=== PATIENT | female | born 1945 | race Caucasian/White ===

== ENCOUNTER 2022-07-01 10:34 | Outpatient (CLI) | payer MEDICARE, OTHER, SELFPAY ==
[2022-07-01 14:04] LABS: Chloride* 103 mmol/L (96-114); Sodium* 140 mmol/L (135-149)
[2022-07-01 14:05] LABS: Potassium* 4.3 mmol/L (3.6-5.1)
[2022-07-01 14:06] LABS: Cholesterol* 149 mg/dL (90-199)
[2022-07-01 14:07] LABS: Alkaline Phosphatase* 71 U/L (40-150); Aspartate Amino Transferase* 24 U/L (12-35); Blood Urea Nitrogen* 19 mg/dL (7-30); Carbon Dioxide* 29 mmol/L (20-32); Estimated Glomerular Filt Rate 57 ml/min; Glucose* 92 mg/dL (60-115); Total Protein* 7.3 g/dL (6.0-8.3)
[2022-07-01 14:08] LABS: Alanine Aminotransferase* 10 U/L (4-35); Calcium* 9.2 mg/dL (8.4-10.6); HDL Cholesterol* 52 mg/dL (>=50); LDL Cholesterol Calculated 75 mg/dL (<100); Triglycerides* 109 mg/dL (40-149)
[2022-07-01 14:21] LABS: Albumin* 4.1 g/dL (3.3-5.0)
[2022-07-01 14:57] LABS: Vitamin B12* 652 pg/mL (243-894)
== END 2022-07-01 10:35 | disposition home or self-care (01) ==
PROVIDERS: PCP Family Medicine; Visit Provider Family Medicine
DX: I10 Essential (primary) hypertension (principal); K21.9 Gastro-esophageal reflux disease without esophagitis; R53.83 Other fatigue; E03.9 Hypothyroidism, unspecified; E78.6 Lipoprotein deficiency
CPT/HCPCS: 80053; 80061; 82607; 84443

== ENCOUNTER 2022-07-23 14:50 | Outpatient (CLI) | payer MEDICARE, OTHER, SELFPAY ==
--- NOTE | 2022-07-23 15:00 | CRLHL7_ITS ---
For Patients: As a result of the Century Cures Act, medical imaging exams and procedure reports are released immediately into your electronic medical record. You may view this report before your referring provider. If you have questions, please contact your health care provider. DXA BONE MINERAL DENSITY STUDY Current height (in): 60.0. Weight (lb): 140.0. Menopause age: 48. Ethnicity: White. 1. Have you had a previous hip or vertebral fracture? Yes. 2. Have you had any fractures during your adult life which did not result from significant trauma (e.g., auto accident)? Yes. 3. Did either of your parents have a hip fracture? Yes. 4. Do you smoke? No. 5. Have you ever taken Glucocorticoids? No. 6. Do you have rheumatoid arthritis? No. 7. Do you have secondary osteoporosis? Yes. 8. Do you drink 3 or more alcoholic drinks per day? No. 9. Are you being treated for osteoporosis? No. 10. Have you ever taken any of the following medications: Actonel, Evista, Fosamax, Miacalcin, Reclast, Boniva, Forteo, HRT (i.e. estrogen/hormone therapy), Protelos, Prolia, Vitamin D, Calcium, other ??? please specify. ANSWER: Yes, vitamin D, calcium. 11. Do you have any of the following medical conditions: Anorexia or bulimia, asthma or emphysema, end stage renal disease, hyperparathyroidism, any seizure disorders, cancer, inflammatory bowel diseases, hysterectomy, other ??? please specify. ANSWER: Yes, cancer. 12. What was your maximum height (inches)? 60. 13. Do you perform weight bearing exercise regularly? Yes. 14. Do you regularly consume dairy products? No. 15. Do you drink caffeinated beverages? No. If female: 16. At what age did your period start? 12. 17. Are you premenopausal? No. 18. How many full term pregnancies have you had? 2. 19. Have you ever missed your period for more than 6 months in a row (not including or menopause)? No. TECHNIQUE: Bone mineral density study was performed using the [employer]. FINDINGS: The results of the study expressed as bone mineral density (BMD) are as follows: Lumbar spine L2 to L4: BMD: 0.836 g/cm2. T-score: -2.2. Z-score: 0.5. Neck Left: BMD: 0.574 g/cm2. T-score: -2.5. Z-score: -0.2. Right: BMD: 0.610 g/cm2. T-score: -2.1. Z-score: 0.1. Total Left: BMD: 0.796 g/cm2. T-score: -1.2. Z-score: 0.8. Right: BMD: 0.877 g/cm2. T-score: -0.5. Z-score: 1.5. IMPRESSION: Osteoporosis. Johan Muñiz M.D. Diagnostic Radiologist [email or web address] Transcribed: 11L35 am DW/Dictated by: Johan Muñiz MD @ 07/24/2022 9:12:00 AM (Electronically Signed)
--- NOTE | 2022-08-19 14:22 | URNOTE ---
Received request for prior authorization for Reclast ([id number]). Pt has medicare primary. Prior authorization is not required as services are based on medical necessity and follow medicare guidelines
== END 2022-07-23 14:51 | disposition home or self-care (01) ==
LOC: RAD 14:51
PROVIDERS: PCP Family Medicine; Visit Provider Family Medicine
DX: M81.0 Age-related osteoporosis without current pathological fracture (principal)
CPT/HCPCS: 77080

== ENCOUNTER 2022-08-15 13:59 | Outpatient (CLI) | payer MEDICARE, OTHER, SELFPAY ==
[2022-08-18 13:53] LABS: Magnesium* 1.9 mg/dL (1.5-2.6); Phosphorus* 3.7 mg/dL (2.5-4.5)
== END 2022-08-15 14:00 | disposition home or self-care (01) ==
PROVIDERS: PCP Family Medicine; Visit Provider Family Medicine
DX: M81.0 Age-related osteoporosis without current pathological fracture (principal); I10 Essential (primary) hypertension
CPT/HCPCS: 83735; 84100

== ENCOUNTER 2022-08-21 09:15 | Outpatient (RCR) | payer MEDICARE, OTHER, SELFPAY ==
--- NOTE | 2022-07-22 16:50 | PT.OPE ---
PT [place] [facility] Start: 07/22/22 10:12 Freq: Status: Active Protocol: Document 07/22/22 10:13 BMS (Rec: 07/22/22 10:14 BMS [id number]) E-signed By Joan Aponte PT Physical Therapy Outpatient Evaluation Insurance Information Recert Due Date 10/19/22 Insurance Name Medicare B Insurance Information/Comments also mutual of [employer] Medical Diagnosis dorsalgia M54.9 Treating Diagnosis low back pain M54.50 abnormal gait R26.89 Referring MD Fran STAUFFER Subjective Subjective pain has been going on for a couple of years, since fell and fx pelvis. went to PT here for a little while then also in [place] where they tried to straighten out my pelvis and gave me some exercises that I do almost every day bc they make me feel better. (bridge, LTR, piriformis/glute stretch, SKTC) but I dont' know if it is getting any better. always kind of there but notice it most with FUNCTIONAL ACTIVITIES: sit to stand shelly from car (have to stand a min or so bc severe pain), walking more than a couple of blocks (try to walk to mailbox and back is maybe [address], starts to hurt nursing home there and have to sit when done), standing for shopping (maybe 20 min then have to sit). Son always tells me not to shuffle my feet and that I need to walk more, but I cant' walk more bc it hurts so much. Live in tiny house on son's [place] acres in the summer, go to [place] in winter, leave Aug 23. also my legs go tired fast PAST RX: PT, 2 tylenol relieves it, cream from [place] numbs it. I do not use walking sticks, a walker nor cane Date of Last Physician Visit 07/07/22 Current Work Status Retired Preferred Name Pat Precautions Treatment Precautions/Contraindications hx fx pelvis, on xray found wedge fx L1, skin cancer leaves 08/23 for [place] winter Therapy Limitations/Systems Review Hearing Objective Range of Motion trunk fingertips to mid olmos, ext mod to severe loss compensates with pelvic tilt. Sidebend L=R both severe loss SLR R = 70, L=80 ankle in long sit B to neutral . R knee ext loss 10 degrees - tight through HS and calf Strength MMT seated hip flex B 4+/5, quad adn HS 5/5. DF 4/5, PF R= 5/5, L=4/5 (not tested in standing). EHL R= 5/5, L=4/5 bent knee hip ext in prone on pillow B 3-/5 Palpation tenderness across low back and into glutes, myofascial restrictions noted in mid to low back as well as hamstrings and R>L QL Balance & Gait lack hip extension, is forward bent trunk, shuffles when not mindful, decreased stride length. . arm swing appropriate, L rotation lacking. Posture head forward, hips shifted R, scoliosis, pelvis rotated to R , when not thinking of it patient stands w R rotated pelvis ~ 30-45 degrees. and with R hip ER. L iliac high vs R Sensation/Reflexes slight decrease in pin prick L LE. reports sensation lacking in L foot when walk but not objective Other/Pertinent Objective difficulty with bed mobility - will need instruction and strengthening in rolling and up/down Assessment Assessment/Impression Pt is 77 y.o. female referred to rehab services for ongoing low back pain. She notes pain across low back/sacrum that extends into posterior - gluteals and hamstrings that began after pelvic fx (non- surgical). Prior treatment: 2 tylenol will relieve as does some topical cream from [place] , does daily routine of back stretches from PT in [place], was seen here briefly before she left for [place] maybe 1-2 years ago. Functional limitations: pain with sit/ stand walking, standing > 15-20 min, squatting to pick things up, getting up from floor from dog cares, bed mobility. She shelly would like to improve walking ability for function and fitness. She presents with myofascial restrictions in lower half, R rotated pelvis ~ 30 degrees in standing, L iliac elevated, weakness in glutes and back extensors, tightness in hip rotators and R more than L hamstring. She does also lack balance in challenged situations. She is appropriate for skilled physical therapy to address current condition x 4 weeks until she leaves for [place] for winter. Primary Functional Limitations sit/ stand walking standing squatting getting up from floor bed mobility Plan of Care Rehabilitation Potential Good Physical Therapy Goals STG meet 2-3 weeks 1) Patient will demonstrate I HEP and self care/home management techniques for pain management, core stability and ROM. 2 ) Pt report pain <2-3/10 with activity and provocative positions rolling over in bed, standing up, getting out of car etc. LTG meet 4-8 weeks 1) Pt demo ability to lift 20- 50# for dependent care of dog without increased pain using most appropriate applicable body mechanics 2) Pt report ability to perform all aspects of home chores without increased pain for continued independent living. 3) Pt demo ability to ascend/ descend stairs for access to home environment without increased pain 4) Pt report ability to participate in fitness activities including walking and ex without increased pain for health and wellness goals Coordination/Communication With Referral Source Treatment Plan/Direct Interventions Electrical Stimulation,Gait Training,Manual Therapy, Neuromuscular Re-ed,Self-Care/ Home Management,Therapeutic Activities,Therapeutic Exercises Frequency/Duration 1-2x/ week x 4 weeks until leaves for [place] Patient Will Be Discharged From Therapy Completion of LTG(s),Skills Plateau,Independent w/HEP, Independently Progressing Evaluation Billing Complexity Moderate Certification Information Initial Certification Date 07/22/22 Ending Certification Date 10/19/22 Provider Signature Shows Agreement With POC & Medical Necessity Physician Comment/Change Comment or Changes Physician NPI Number #
--- NOTE | 2022-07-31 14:09 | URNOTE ---
Request received for authorization for Farideh ([id number]). Prior authorization is not required as services are based on medical necessity and follow Medicare guidelines.
== END 2022-08-22 07:32 | disposition home or self-care (01) ==
PROVIDERS: PCP Family Medicine; Referring Provider Family Medicine; Visit Provider Family Medicine
DX: M54.9 Dorsalgia, unspecified (principal); Z51.89 Encounter for other specified aftercare
CPT/HCPCS: 97110; 97116; 97140; 97162

== ENCOUNTER 2022-08-22 12:58 | Outpatient (RCR) | payer MEDICARE, OTHER, SELFPAY ==
[2022-08-22 13:21] VITALS: BP 152/77; PULSE 64; RESP 16; TEMP 36.1
--- NOTE | 2022-08-22 14:51 | ONC.NURNOTE ---
Pt here for Reclast, pt's CrCl calculates to 32.77ml/min. Per standing orders, reclast should be held. Telephone Appointment Clerk called and left message with Dr. Peters (ordering physician) and whether safe to proceed with Reclast. Per Dr. Peters, okay to give Reclast with CrCl of 32.77ml/min. Telephone Appointment Clerk requested order to be faxed.
== END 2023-02-18 23:59 | disposition home or self-care (01) ==
LOC: CCIC 12:58
PROVIDERS: PCP Family Medicine; Referring Provider Family Medicine; Visit Provider Clinical Nurse Specialist
DX: M81.0 Age-related osteoporosis without current pathological fracture (principal)
CPT/HCPCS: 96374; J3489

== ENCOUNTER 2023-04-20 13:58 | Outpatient (CLI) | payer MEDICARE, OTHER, SELFPAY | END 2023-04-20 13:59 | disposition home or self-care (01) | PROVIDERS: PCP Family Medicine; Visit Provider Family Medicine | DX: E03.9 Hypothyroidism, unspecified (principal); R53.83 Other fatigue; R42 Dizziness and giddiness | CPT/HCPCS: 84443 ==

== ENCOUNTER 2023-07-14 09:15 | Outpatient (CLI) | payer MEDICARE, OTHER, SELFPAY | END 2023-07-14 09:16 | disposition home or self-care (01) | LOC: NFLDREF 07-15 05:54 | PROVIDERS: PCP Family Medicine; Referring Provider Family Medicine; Visit Provider Family Medicine | DX: E78.6 Lipoprotein deficiency (principal); I10 Essential (primary) hypertension; M81.0 Age-related osteoporosis without current pathological fracture | CPT/HCPCS: 80053; 80061; 82607; 83735; 84100 ==

== ENCOUNTER 2023-07-21 12:58 | Outpatient (RCR) | payer MEDICARE, OTHER, SELFPAY ==
--- NOTE | 2023-07-14 13:34 | URNOTE ---
Request received for authorization forEvan ([id number]). Prior authorization is not required as services are based on medical necessity and follow Medicare guidelines.
[2023-07-21 13:10] VITALS: BP 138/67; PULSE 75; RESP 16; TEMP 36.2; O2SAT 94
== END 2024-01-17 23:59 | disposition home or self-care (01) ==
LOC: CCIC 12:58
PROVIDERS: PCP Family Medicine; Referring Provider Family Medicine; Visit Provider Clinical Nurse Specialist
DX: M81.0 Age-related osteoporosis without current pathological fracture (principal)
CPT/HCPCS: 96376; J3489

== ENCOUNTER 2024-05-18 06:08 | Day surgery (SDC) | payer MEDICARE, OTHER, SELFPAY ==
[2024-05-18] MEDS: LACTATED RINGERS 1000 ML 1,000 ML 100 ML IV (06:20)
[2024-05-18 06:35] VITALS: BP 165/68; PULSE 72; RESP 16; TEMP 36.7; O2SAT 97; BMI 25.5
[2024-05-18] MEDS: SODIUM CHLORIDE 0.9 % (FLUSH) 10 ML SYRINGE IVF (06:56)
--- NOTE | 2024-05-18 06:57 | SUR.PREOP ---
TIME?OUT:?06 PT/RN/MDA?VERIFICATION?OF?SURGICAL?SITE Rigth Wrist,?PROCEDURE Nerve Block,?AND?CONSENT OBTAINED?PRIOR?TO?INVASIVE?PROCEDURE.
[2024-05-18 07:05] VITALS: BP 165/78; PULSE 63; RESP 16; O2SAT 99
--- NOTE | 2024-05-18 07:07 | W.PM.H&PU ---
History & Physical Update History & Physical Update H&P Reviewed and patient assessed: No changes noted
[2024-05-18] MEDS: MIDAZOLAM HCL 1 MG/ML inj IVP (07:08)
[2024-05-18] MEDS: fentaNYL 100 MCG/2 ML inj IVP (07:08)
[2024-05-18 07:10] VITALS: BP 151/67; PULSE 62; RESP 16; O2SAT 99
[2024-05-18] MEDS: CEFAZOLIN 2 GM in 0.9 % SODIUM CHLORIDE Mini-bag 100 ML IVPB (07:20)
--- NOTE | 2024-05-18 07:47 | P.ORPRC_ITS ---
Procedure Note Date of procedure: 05/18/24 Procedure: PREOPERATIVE DIAGNOSIS: 1. Right dorsal wrist benign mass POSTOPERATIVE DIAGNOSIS: 1. Right dorsal wrist benign cyst PROCEDURE: 1. Right dorsal wrist benign cyst open excision SURGEON: Tommy Leo MD. SOAP DRIER OPERATOR: Tracee WEATHERS - Of note, an administrative assistant was valuable for this case to aid in patient positioning, tissue retraction, limb manipulation/positioning, and closure. ANESTHESIA: Regional block plus MAC IMPLANTS: None TOURNIQUET: [9] minutes at 210 torr COMPLICATIONS: None evident INDICATIONS: The patient is a pleasant 79-year-old female who has experienced right dorsal wrist recurrent benign mass/cyst with pain that has progressively gotten worse. Nonoperative management has been tried but unsuccessful. Given the failure of nonoperative management, and how this affects daily life, surgery was recommended. DESCRIPTION OF PROCEDURE: Following a thorough discussion of risks, benefits, and alternatives consent was obtained and the operative extremity was marked. The patient was brought to the operating room and placed supine on the operating table. No antibiotics were administered as this was planned to be a local case only. Proper time-out was performed identifying proper patient, site, and procedure. The operative extremity was prepped and draped in the appropriate sterile fashion using ChloraPrep. The limb was exsanguinated and the tourniquet inflated. A longitudinal incision made overlying the dorsal aspect of the right wrist centered over the cyst itself. Sharp incision through the very thin skin and blunt dissection then through subcutaneous layer allowed identification of the cystic structure. This seemed to be coming from the extensor tendon synovial layer/fluid. The fluid itself appeared to be a synovial fluid. Once the cyst was punctured, clear, pena colored minimally viscous fluid was expressed. Different than a typical ganglion cyst. The remaining sac to the cyst was mobilized from the deeper synovial lining. It was intimate with the extensor tendons of the fingers. This was sent for permanent pathology. Bipolar cautery was utilized to help mobilize and remove the cyst from deeper capsular structures. Caution was taken along the extensor tendons. Thorough irrigation normal saline was performed. Tourniquet was deflated prior to closure. Hemostasis achieved. Closure performed with [4-O nylon]. Soft dressings and a wrist brace were applied, and the patient was awoken/transferred to the recovery room in stable condition. PLAN: 1. Encourage elevation of the operative extremity. 2. Range of motion of the operative extremity/digits as tolerated. 3. Ibuprofen, acetaminophen and/or oxycodone as needed for pain. 4. Follow up with PA visit in 12-16 days for wound check and suture removal.
[2024-05-18] MEDS: NEOMYCIN/BACITRACIN/POLYMYXIN B 1 APPLIC TOPICAL (07:51)
--- NOTE | 2024-05-18 07:57 | W.PM.NB ---
Nerve Block Nerve Block Time Seen by Provider: 07:11 Date Seen: 05/18/24 Type of block requested by surgeon for post-operative analgesia: axillary Side: right Time out performed: Yes Verification of patient name: Yes Verification of date of : Yes Site marking: site marked Name of person performing procedure: Jere Continuous monitoring Was continuous monitoring of O2 sat, B/P, nuclear monitoring technician, recorded every 15 minutes?: Yes Procedure Checklist: sterile prep, needles and gloves Ultrasound guided. Images saved: Yes Medications given in 5ml increments after negative aspiration: Lidocaine %: 2 mL: 20 Needle gauge: 22 Patient tolerated procedure well: Yes Additional comments: Needle noted adjacent to nerve Block Charges Block Charge (with Pro Fee): Brachial Plexus Use of Ultrasound Machine for Block: Yes- US Guidance/pain block
--- NOTE | 2024-05-18 07:58 | W.ANESCHARGE ---
Anesthesia Charges Start Date/Time Anesthesia Start Date: 05/18/24 Anesthesia Start Time: 07:15 Stop Date/Time Anesthesia Stop Date: 05/18/24 Anesthesia Stop Time: 08:03 Summary Extremes of Age - Over 70 or under 1: MDA
[2024-05-18 08:03] VITALS: BP 120/60; PULSE 80; RESP 20; TEMP 36.2; O2SAT 95
--- NOTE | 2024-05-18 08:06 | W.ANESCHARGE ---
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
[2024-05-18 08:15] VITALS: BP 142/72; PULSE 72; RESP 18; O2SAT 93
[2024-05-18 08:30] VITALS: BP 140/74; PULSE 74; RESP 18; O2SAT 95
== END 2024-05-18 08:50 | disposition home or self-care (01) ==
LOC: OR 06:09
PROVIDERS: PCP Family Medicine; Visit Provider Orthopaedic Surgery Sports Medicine
PROC: (CPT 25112; principal; 2024-05-18 07:15)
DX: M67.431 Ganglion, right wrist (principal); G89.18 Other acute postprocedural pain
CPT/HCPCS: 25112; 01810; 64415; 76942; 88304; 99100; J0690; J2250; J2405; J2704; J3010; J3490; J7120

== ENCOUNTER 2024-07-08 08:56 | Outpatient (CLI) | payer MEDICARE, OTHER, SELFPAY | END 2024-07-08 08:57 | disposition home or self-care (01) | LOC: NFLDREF 16:18 | PROVIDERS: PCP Family Medicine; Referring Provider Family Medicine; Visit Provider Family Medicine | DX: Z00.00 Encounter for general adult medical examination without abnormal findings (principal); E53.8 Deficiency of other specified B group vitamins; M81.0 Age-related osteoporosis without current pathological fracture; E03.9 Hypothyroidism, unspecified; I10 Essential (primary) hypertension; E78.00 Pure hypercholesterolemia, unspecified | CPT/HCPCS: 80053; 80061; 82607; 84443 ==

== ENCOUNTER 2024-08-03 12:56 | Outpatient (CLI) | payer MEDICARE, OTHER, SELFPAY ==
--- NOTE | 2024-08-03 13:00 | CRLHL7_ITS ---
For Patients: As a result of the Century Cures Act, medical imaging exams and procedure reports are released immediately into your electronic medical record. You may view this report before your referring provider. If you have questions, please contact your health care provider. DXA BONE MINERAL DENSITY STUDY Reason for exam: Age-related osteoporosis. Current height (inches): 60 Weight (lbs.): 128 Menopause age: 48 Ethnicity: White 1. Have you had a previous hip or vertebral fracture? Yes. 2. Have you had any fractures during your adult life which did not result from significant trauma (e.g., auto accident)? Yes. 3. Did either of your parents have a hip fracture? No. 4. Do you smoke? No. 5. Have you ever taken Glucocorticoids? No. 6. Do you have rheumatoid arthritis? No. 7. Do you have secondary osteoporosis? No. 8. Do you drink 3 or more alcoholic drinks per day? No. 9. Are you being treated for osteoporosis? Yes. 10. Have you ever taken any of the following medications: Actonel, Evista, Fosamax, Miacalcin, Reclast, Boniva, Forteo, HRT (i.e., estrogen/hormone therapy), Protelos, Prolia, Vitamin D, Calcium, other ??? please specify. ANSWER: Yes; vitamin D and calcium. 11. Do you have any of the following medical conditions: Anorexia or bulimia, asthma or emphysema, end stage renal disease, hyperparathyroidism, any seizure disorders, cancer, inflammatory bowel diseases, hysterectomy, other ??? please specify. ANSWER: Yes; Basal cell skin cancer. 12. What was your maximum height (inches)? 60. 13. Do you perform weightbearing exercise regularly? No. 14. Do you regularly consume dairy products? No. 15. Do you drink caffeinated beverages? No. 16. At what age did your period start? 12. 17. Are you premenopausal? No. 18. How many full-term pregnancies have you had? 2. 19. Have you ever missed your period for more than 6 months in a row (not including or menopause)? No. TECHNIQUE: Bone mineral density study was performed using the [email or web address]. FINDINGS: The results of the study expressed as bone mineral density (BMD) are as follows: Lumbar Spine L2 to L4: BMD: 0.894 g/cm2. T-score: -1.7. Z-score: 1.1. Neck Left: BMD: 0.583 g/cm2. T-score: -2.4. Z-score: 0.0. Right: BMD: 0.670 g/cm2. T-score: -1.6. Z-score: 0.7. Total Left: BMD: 0.775 g/cm2. T-score: -1.4. Z-score: 0.8. Right: BMD: 0.832 g/cm2. T-score: -0.9. Z-score: 1.2. IMPRESSION: Osteopenia. COMPARISON: Compared with scan of 07/23/2022, the bone mineral density has increased by 7.0% at the spine and decreased by 3.9% at the hip. Compared with scan of 07/17/2021, the bone mineral density has increased by 0.6% at the spine and decreased by 1.2% at the hip. *Comparison exams done prior to 04/2020 were performed on different unit, [facility]. IRWIN CHAUDHARI M.D. Body/Diagnostic Radiologist [email or web address] Transcribed: 11:[address]/Dictated by: Irwin Chaudhari MD @ 08/04/2024 10:44:00 AM (Electronically Signed)
== END 2024-08-03 12:57 | disposition home or self-care (01) ==
LOC: RAD 12:57
PROVIDERS: PCP Family Medicine; Visit Provider Family Medicine
DX: M81.0 Age-related osteoporosis without current pathological fracture (principal); M85.89 Other specified disorders of bone density and structure, multiple sites
CPT/HCPCS: 77080

== ENCOUNTER 2024-08-05 11:16 | Outpatient (CLI) | payer MEDICARE, OTHER, SELFPAY | END 2024-08-05 11:17 | disposition home or self-care (01) | PROVIDERS: PCP Family Medicine; Visit Provider Family Medicine | DX: D64.9 Anemia, unspecified (principal); E53.8 Deficiency of other specified B group vitamins; E78.00 Pure hypercholesterolemia, unspecified; E03.9 Hypothyroidism, unspecified; I10 Essential (primary) hypertension | CPT/HCPCS: 82728; 83540 ==

== ENCOUNTER 2024-10-28 17:24 | Outpatient (CLI) | payer MEDICARE, OTHER, SELFPAY ==
[2024-10-28 17:54] LABS: Hematocrit 28.5 % (33.0-51.0); Hemoglobin* 9.3 gm/dL (12.0-16.0); Mean Corpuscular HGB Conc 33 gm/dL (32-36); Mean Corpuscular Hemoglobin 28 pg (26-34); Mean Corpuscular Volume 85 fL (80-100); Platelet Count* 319 K/uL (140-440); Red Blood Count 3.35 m/uL (4.00-5.20); White Blood Count* 9.68 K/uL (4.50-11.00)
[2024-10-28 18:30] LABS: Slide Review Reflex No
[2024-10-28 18:33] LABS: Chloride* 111 mmol/L (96-114); Potassium* 3.2 mmol/L (3.6-5.1); Sodium* 142 mmol/L (135-149)
[2024-10-28 18:36] LABS: Anion Gap 17 mEq/L (7-15); Blood Urea Nitrogen* 30 mg/dL (7-30); Carbon Dioxide* 14 mmol/L (20-32); Creatinine* 5.7 mg/dL (0.5-1.5); Estimated Glomerular Filt Rate 7 ml/min
[2024-10-28 18:55] LABS: Glucose* 96 mg/dL (60-115)
== END 2024-10-28 17:25 | disposition home or self-care (01) ==
LOC: OP CLINIC 17:31
PROVIDERS: PCP Family Medicine; Visit Provider Family Medicine
DX: N17.9 Acute kidney failure, unspecified (principal)
CPT/HCPCS: 36415; 80048; 85027

== ENCOUNTER 2024-10-29 11:05 | Outpatient (CLI) | payer MEDICARE, OTHER, SELFPAY | END 2024-10-29 11:06 | disposition home or self-care (01) | LOC: NFLDREF 10-31 06:44 | PROVIDERS: PCP Family Medicine; Referring Provider Family Medicine; Visit Provider Family Medicine | DX: E11.9 Type 2 diabetes mellitus without complications (principal); N17.9 Acute kidney failure, unspecified | CPT/HCPCS: 82043; 82570 ==

== ENCOUNTER 2024-10-29 13:47 | Outpatient (REF) | payer MEDICARE, OTHER, SELFPAY ==
[2024-10-29 15:00] LABS: Basophils Absolute Auto 0.09 K/uL (0.00-0.30); Basophils Percent Auto 1.1 % (0.0-3.0); Eosinophils Absolute Auto 0.31 K/uL (0.00-0.50); Eosinophils Percent Auto 3.7 % (0.0-7.0); Hematocrit 27.7 % (33.0-51.0); Hemoglobin* 9.3 gm/dL (12.0-16.0); Immature Granulocytes Abs Auto 0.08 K/uL (0.00-0.30); Lymphocytes Absolute Auto 1.77 K/uL (0.90-2.90); Lymphocytes Percent Auto 21.4 % (20-44); Mean Corpuscular HGB Conc 34 gm/dL (32-36); Mean Corpuscular Hemoglobin 30 pg (26-34); Mean Corpuscular Volume 88 fL (80-100); Monocytes Percent Auto 9.5 % (0.0-11.0); Neutrophils Absolute Auto 5.25 K/uL (1.7-7.0); Neutrophils Percent Auto 63.3 % (42.0-72.0); Platelet Count* 313 K/uL (140-440); Red Blood Count 3.14 m/uL (4.00-5.20); White Blood Count* 8.29 K/uL (4.50-11.00)
[2024-10-29 15:04] LABS: Slide Review Reflex No
[2024-10-29 15:08] LABS: Chloride* 110 mmol/L (96-114); Potassium* 3.1 mmol/L (3.6-5.1); Sodium* 140 mmol/L (135-149)
[2024-10-29 15:10] LABS: Creatinine* 5.2 mg/dL (0.5-1.5); Estimated Glomerular Filt Rate 8 ml/min
[2024-10-29 15:11] LABS: Alanine Aminotransferase* 25 U/L (4-35); Alkaline Phosphatase* 78 U/L (40-150); Anion Gap 13 mEq/L (7-15); Aspartate Amino Transferase* 46 U/L (12-35); Bilirubin Total* 0.7 mg/dL (0.1-1.5); Blood Urea Nitrogen* 31 mg/dL (7-30); Calcium* 9.2 mg/dL (8.4-10.6); Carbon Dioxide* 17 mmol/L (20-32); Glucose* 117 mg/dL (60-115); Total Protein* 7.4 g/dL (6.0-8.3)
== END 2024-10-29 13:48 | disposition home or self-care (01) ==
LOC: NPINS 13:47
PROVIDERS: PCP Family Medicine; Visit Provider Family Medicine
DX: E11.22 Type 2 diabetes mellitus with diabetic chronic kidney disease (principal); N17.9 Acute kidney failure, unspecified
CPT/HCPCS: 80053; 85025

== ENCOUNTER 2024-11-13 06:31 | Inpatient (IN) | payer MEDICARE, OTHER, SELFPAY ==
--- OUTSIDE RECORDS SUMMARY | 2024-11-13 06:33 | XMS_ITS | Continuity of Care Document ---
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
--- OUTSIDE RECORDS SUMMARY | 2024-11-13 06:34 | XMS_ITS | Clinical Summary ---
Author Organization [facility] Address [place], [place] [address] Care Team Providers Care Checker Name Role Phone Chuckie Peters MD Primary Care Provider [phone] Allergies Active Allergy Reactions Criticality Noted Date Comments Erythromycin GI Upset 07/15/2012 Penicillins Rash,Yeast Infection High 07/04/2012 Medications * This document contains information received from the source organization and may not represent a complete record from that organization. omeprazole (PRILOSEC) 20 mg capsule Take 1 capsule by mouth 2 times daily before meals. 180 capsule 3 08/11/20 13 Active aspirin 81 mg tablet Take 1 tablet by mouth once daily with a meal. 30 tablet 0 08/11/20 13 Active oxybutynin XL (DITROPAN XL) 10 mg CR tabletIndications: Urgency of urination Take 1 tablet by mouth once daily. 90 tablet 3 05/27/20 16 Active atorvastatin (LIPITOR) 20 mg tabletIndications: Hyperlipidemia, unspecified hyperlipidemia type Take 1 tablet by mouth once daily with evening meal. 90 tablet 3 05/27/20 16 Active amLODIPine (NORVASC) 2.5 mg as half tablet Take 2.5 mg by mouth once daily. Active gabapentin (NEURONTIN) 300 mg capsule Take 300 mg by mouth at bedtime. Active iron,carbonyl-valerie min C (Vitron-C) 65 mg iron- 125 mg Delayed-Release tablet Take 1 Tablet by mouth once daily. Active sodium bicarbonate 650 mg tablet Take 650 mg by mouth two times daily. Active Sennosides 17.2 mg tab Take 17.2 mg by mouth two times daily. Active rosuvastatin (CRESTOR) 20 mg tablet Take 20 mg by mouth once daily. Active levothyroxine (SYNTHROID) 50 mcg tablet Take 50 mcg by mouth once daily. Active ergocalciferol (,vitamin D2,) 50,000 unit capsuleIndications :Vitamin D deficiency Take 1 Capsule (50,000 units) by mouth once weekly for 8 doses. 4 Capsule 1 11/07/20 24 025 Active cholecalciferol, Vitamin D3, 2,000 unit tabletIndications: Vitamin D deficiency Take 1 Tablet (2,000 units) by mouth once daily. Please start these tablets after you complete the weekly Ergocalciferol course. 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 BASAL CELL CARCINOMA, HX OF ROSACEA Resolved Problems Problem Noted Date Diagnosed Date Resolved Date Special screening for malign ant neoplasms, colon 05/05/2013 07/18/2013 U R I 03/25/2010 04/15/2010 SEROUS OTITIS 03/25/2010 04/01/2010 Encounters Date Type Department Care Team Description 11/08/2024 11:00 AM [facility]NA[facility]ST [facility] Orders Only [facility] [address] [place] [address] Lab 11/08/2024 9:00 AM ANALYST MICROBIOLOGY LAB Ancillary Procedure Formerly [facility] [address] [facility] [address] [place] [address] 11/08/2024 Nurse Triage [facility] [address] [place] [address] Chuckie Peters MD Swallowing Difficulty (Difficulty swallowing liquids accompanied by chest pain) 11/08/2024 Travel 11/07/[address] [facility] [address] [facility] [address] [place], [place] [id number] Harmony Shafer MD Results 11/01/[address] [facility] [address] [place] [address] [place] [address] Harmony Shafer MD <No scans attached> 11/01/[address] [facility] [address] [place] [address] [place] [address] Harmony Shafer MD Order (Urine Drop off) 10/31/2024 3:00 PM ANALYST [facility]CRO[facility] LAB Office Visit [facility] [address] [place] [address] Harmony Shafer MD Consult 10/31/2024 1:45 PM ANALYST MICROBIOLOGY LAB Orders Only [facility] [address] [place] [address] Lab 10/31/2024 Travel from Last 3 Months Immunizations Name Administration Dates Next Due Influenza Virus, Unspecified 08/22/2008 Influenza, High-dose Inactivated 08/01/2015 Influenza, IIV3 (Age >=3 years) 08/02/2014 Pneumococcal Poly,23-Valent (Pneumovax) 11/09/19 08 Pneumococcal conj 13-Valent (Prevnar 13) 016 Td (Age >=7 Years) 07/18/2009 Td, Preservative Free (age >= 7 Years) 2 Family History Medical History Relation Name Comments Other Father complications o f hip fracture Cancer Mother liver cancer Anesthesia Problem No Family History Cancer-breast No Family History Heart Disease No Family History Stroke No Family History Relation Name Status Comments Brother Alive Father (Age 87) complicati ons of hip fracture Mother (Age 70) Liver canc er Sister 1 Alive Sister 2 Alive Social History Tobacco Use Types Packs/Day Years Used Date Smoking Tobacco: Former Cigarettes Q uit: 07/21/1993 Smokeless Tobacco: Never Tobacco Cessation:Counseling Given: Not Answered Alcohol Use Standard Drinks/Week Comments Yes 5 (1 standard drink = 0.6 oz pur e alcohol) Comments No Sex and Gender Information Value Date Recorded Sex Assigned at Not on file Legal Sex Female 6:31 AM ANALYST MICROBIOLOGY LAB Gender Identity Not on file Sexual Orientation Not on file Travel History Travel Start Travel End [place] 10/28/2024 10/30/2024 Obstetrics History Last Filed Vital Signs Vital Sign Reading Time Taken Comments Blood Pressure 118/68 10/31/2024 3:01 PM ANA[facility] Pulse 73 10/31/2024 3:01 PM ANALYST [facility]CROBI[facility] LAB Temperature 36.3 C (97.4 F) 08/20/2015 10:00 AM CDT Respiratory Rate 18 08/11/2013 3:00 PM CDT Oxygen Saturation 98% 07/18/2013 1:29 PM CDT Inhaled Oxygen Concentration - - Weight 57.2 kg (126 lb) 10/31/2024 3:01 PM [facility]NA[facility]ST [facility]CROBIOLOG[facility] Height 153.7 cm (5' 0.5) 10/31/2024 3:01 PM ANALYST MICROBIOLOGY LAB Body Mass Index 24.2 10/31/2024 3:01 PM ANALYST MICROBIOLOG[facility] LAB Plan of Treatment Upcoming Encounters Date Type Department Care Team (Late st Contact Info) Description 11/15/2024 10:00 AM ANALYST MICROBIOLOGY LAB Orders Only [facility] [id number] [place] [address] 11/22/2024 11:00 AM ANALYST MICROBIOLOGY LAB Orders Only [facility] [id number] [place] [address] 11/29/2024 11:00 AM ANALYST MICROBIOLOGY LAB Orders Only [address] [address] 11/30/2024 9:30 AM ANALYST MICROBIOLOGY LAB Office Visit [facility] [address] [place] [address] Mick Cloud MD [address] [facility] [address] [place] [address] 12/01/2024 9:00 AM ANALYST MICROBIOLOGY LAB Orders Only [facility] [address] [facility] [address] [place] [address] Health Maintenance Due Date Last Done Comments Tdap 1954 Zoster (shingles) series for age 50+ (1 of 2) 1993 Medicare Wellness for age 65+ 2008 Depression screening for age 12+ 05/27/2017 05/27/20 16 RSV vaccine for adults or pr egnancy (1 - 1-dose 75+ series) 2018 Pneumococcal series for age 50+ (3 of 3 - PCV20 or PCV21) 05/27/2021 05/27/2016, 11/09/2007 Tetanus booster 08/09/2022 08/09/2012, 07/18/2009 Influenza for age 65+ 07/10/2024 08/01/2015 , 08/02/2014, 08/22/2008 BMI (ht and wt on same day) for age 18+ 10/31/2025 10/31/2024, 05/27/2016 DEXA/DXA scan for age 65+ Completed 2009 (Completed outside of [facility]) COVID-19 vaccine series Completed 07/26/20, 08/04/2023, 04/23/2022 Procedures Procedure Name Priority Date/Time Associated Diagnosis Comments URINALYSIS MICROSCOPIC Routine 11/08/2024 11:11 AM ANALYST MICROBIOLOGY LAB Stage 3b chronic kidney disease (HC) URINE ALBUMIN TO CREATININE RATIO, RANDOM Routine 11/08/2024 11:11 AM ANALYST MICROBIOLOGY LAB Stage 3b chronic kidney disease (HC) UA W/ SEDIMENT EXAM REFLEXED PER CRITERIA Routine 11/08/2024 11:11 AM ANALYST MICROBIOLOGY LAB Stage 3b chronic kidney disease (HC) PROTEIN/CREAT RATIO,URINE Routine 11/08/2024 11:11 AM ANALYST MICROBIOLOGY LAB Stage 3b chronic kidney disease (HC) BASIC METABOLIC PANEL Routine 11/08/2024 11:04 AM ANALYST MICROBIOLOGY LAB Stage 3b chronic kidney disease (HC) Hypertension Vitamin D deficiency PHOSPHORUS Routine 11/08/2024 11:04 AM ANALYST MICROBIOLOGY LAB Stage 3b chronic kidney disease (HC) Hypertension Vitamin D deficiency ELP AND FREE LIGHT CHAINS W REFLEX, BLOOD Routine 11/08/2024 10:58 AM ANALYST MICROBIOLOGY LAB Stage 3b chronic kidney disease (HC) IMMUNOFIXATION,SERUM Routine 11/08/2024 10:58 AM ANALYST MICROBIOLOGY LAB Stage 3b chronic kidney disease (HC) US RENAL AND BLADDER COMPLETE Routine 11/08/2024 9:22 AM ANALYST MICROBIOLOGY LAB Stage 3b chronic kidney disease (HC) CALCITRIOL(1 25 DI OH VIT D) Routine 10/31/2024 4:03 PM ANALYST MICROBIOLOGY LAB Stage 3b chronic kidney disease (HC) Hypertension Vitamin D deficiency VITAMIN D 25 (DEFICIENCY) Routine 10/31/2024 4:03 PM ANALYST MICROBIOLOGY LAB Stage 3b chronic kidney disease (HC) Hypertension Vitamin D deficiency PTH,INTACT Routine 10/31/2024 4:03 PM ANALYST MICROBIOLOGY LAB Stage 3b chronic kidney disease (HC) Hypertension Vitamin D deficiency PHOSPHORUS Routine 10/31/2024 4:03 PM ANALYST MICROBIOLOGY LAB Stage 3b chronic kidney disease (HC) Hypertension Vitamin D deficiency MAGNESIUM Routine 10/31/2024 4:03 PM ANALYST MICROBIOLOGY LAB Stage 3b chronic kidney disease (HC) Hypertension Vitamin D deficiency CYSTATIN C SERUM Routine 10/31/2024 4:03 PM ANALYST MICROBIOLOGY LAB Stage 3b chronic kidney disease (HC) Hypertension Vitamin D deficiency CBC WITH AUTO DIFFERENTIAL Routine 10/31/2024 4:03 PM ANALYST MICROBIOLOGY LAB Stage 3b chronic kidney disease (HC) Hypertension Vitamin D deficiency BASIC METABOLIC PANEL Routine 10/31/2024 4:03 PM ANALYST MICROBIOLOGY LAB Stage 3b chronic kidney disease (HC) Hypertension Vitamin D deficiency from Last 3 Months Results * URINALYSIS MICROSCOPIC (11/08/2024 11:11 AM ANALYST MICROBIOLOGY LAB) RBC 0-2 0-2, None Seen /HPF 11/08/2024 2:18 PM ANALYST MICROBIOLOGY LAB [facility] TR[facility] WBC 3-5 0-2, 3-5, None Seen /HPF 11/08/2024 2:18 PM ANALYST MICROBIOLOGY LAB [facility] TR[facility] BACTERIA None Seen None Seen, Rare, Few Bacteria/ HPF 11/08/2024 2:18 PM ANALYST MICROBIOLOGY LAB [facility] TR[facility] EPITHELIAL CELLS None Seen None Seen, Few Epi/HPF 11/08/2024 2:18 PM ANALYST MICROBIOLOGY LAB [facility] TRAL LABORATORY HYALINE CASTS 0-2 0-2, 3-5 /LPF 11/08/2024 2:18 PM ANALYST MICROBIOLOGY LAB [facility] Urine URINE SPECIMEN / Unknown [facility] / Unknown 11/08/2024 11:11 AM ANALYST MICROBIOLOGY LAB 11/08/2024 11:12 AM ANALYST MICROBIOLOGY LAB Harmony Shafer MD URINE Final Result Performing Organization Address City/[facility]/ZIP Co de Phone Number [facility] [address] [place] [id number], [place] * (ABNORMAL) PROTEIN/CREAT RATIO,URINE (11/08/2024 11:11 AM ANALYST MICROBIOLOGY LAB) PROTEIN QUANT,RAND URINE 92(H) 1 - 14 mg/dL 11/08/2024 3:20 PM ANALYST MICROBIOLOGY LAB [facility] CREAT,RANDOM URINE 76.8 28.0 - 217.0 mg/dL 11/08/2024 3:20 PM ANALYST MICROBIOLOGY LAB [facility] PROT/CREAT RATIO,UR 1.2(H) <0.2 11/08/2024 3:20 PM ANALYST MICROBIOLOGY LAB [facility] Urine URINE SPECIMEN / Unknown [facility] / Unknown 11/08/2024 11:11 AM ANALYST MICROBIOLOGY LAB 11/08/2024 11:12 AM ANALYST MICROBIOLOGY LAB Harmony Shafer MD URINE Final Result Performing Organization Address City/[facility]/ZIP Co de Phone Number [facility] [address] [place] [phone], [place] * (ABNORMAL) URINE ALBUMIN TO CREATININE RATIO, RANDOM (11/08/2024 11:11 AM ANALYST MICROBIOLOGY LAB) ALB RAND URINE 191.0 mg/L 11/09/2024 1:06 AM ANALYST MICROBIOLOGY LAB [facility] TRAL LABORATORY CREATININE,URIN E 0.77 g/L 11/09/2024 1:06 AM ANALYST MICROBIOLOGY LAB [facility]OR[facility] ALBUMIN TO CREATININE RATIO,RAND UR 248.1(H) <30.0 mg/g creat 11/09/2024 1:06 AM [facility] Urine URINE SPECIMEN / Unknown [facility] / Unknown 11/08/2024 11:11 AM ANALYST MICROBIOLOGY LAB 11/08/2024 11:12 AM [facility] Narrative [facility] - 11/09/2024 1:06 AM ANALYST MICROBIOLOGY LAB If Albumin to Creatinine Ratio is elevated, consider the following: Elevations seen with incipient nephropathy associated with diabetes mellitus or hypertension. Stress, exercise,hematuria, and urinary tract infection may also produce elevated results. If clinically indicated, confirm with 24 Hour Albumin to Creatinine Ratio. us Harmony Shafer MD URINE Final Result [facility] [address] [place] [address], [place] * (ABNORMAL) UA W/ SEDIMENT EXAM REFLEXED PER CRITERIA (11/08/2024 11:11 AM [facility]) COLOR Yellow Yellow Color 11/08/2024 2:18 PM [facility] TRAL LABORATORY CLARITY Clear Clear Clarity 11/08/2024 2:18 PM [facility] TRA LABORATORY SPECIFIC GRAVITY,URINE 1.015 1.010, 1.015, 1.020, 1.025 11/08/2024 2:18 PM [facility] TRAL LABORATORY PH,URINE 6.5 6.0, 7.0, 8.0, 5.5, 6.5, 7.5, 8.5 11/08/2024 2:18 PM [facility] UROBILINOGEN, QUALITATIVE Normal Normal EU/dl 11/08/2024 2:18 PM [facility] TRAL LABORATORY PROTEIN, URINE 100(A) Negative mg/dL 11/08/2024 2:18 PM [facility] TRAL LABORATORY GLUCOSE, URINE 100(A) Negative mg/dL 11/08/2024 2:18 PM [facility] TRAL LABORATORY KETONES,URINE Negative Negative mg/dL 11/08/2024 2:18 PM ANALYST MICROBIOLOGY LAB [facility] TRAL LABORATORY BILIRUBIN,URI NE Negative Negative 11/08/2024 2:18 PM ANALYST MICROBIOLOGY LAB [facility] TRAL LABORATORY OCCULT BLOOD,URINE Small(A) Negative 11/08/2024 2:18 PM ANALYST MICROBIOLOGY LAB [facility] TRAL LABORATORY NITRITE Negative Negative 11/08/2024 2:18 PM ANALYST MICROBIOLOGY LAB [facility] TRAL LABOR[facility]ORY LEUKOCYTE ESTERASE Negative Negative 11/08/2024 2:18 PM ANALYST MICROBIOLOGY LAB [facility] TRAL [facility] Urine URINE SPECIMEN / Unknown [facility] / Unknown 11/08/2024 11:11 AM ANALYST MICROBIOLOGY LAB 11/08/2024 11:12 AM ANALYST MICROBIOLOGY LAB Harmony Shafer MD URINE Final Result [facility] [address] [place] [id number], * PHOSPHORUS (11/08/2024 11:04 AM ANALYST MICROBIOLOGY LAB) Only the most recent of2 resultswithin the time period is included. PHOSPHATE ( PHOSPHORUS) 3.3 2.1 - 4.3 mg/dL [facility] Blood BLOOD SPECIMEN / Unknown 11/08/2024 11:04 AM ANALYST MICROBIOLOGY LAB 11/08/2024 11:04 AM ANALYST MICROBIOLOGY LAB Narrative [facility] - 11/09/2024 6:29 AM ANALYST MICROBIOLOGY LAB FASTING:NO FASTING: NO Harmony Shafer MD CHEMISTRY Final Result [facility] [address] [place] [address], [place] [phone] [facility] [address] [place] [address] * (ABNORMAL) BASIC METABOLIC PANEL (11/08/2024 11:04 AM ANALYST MICROBIOLOGY LAB) Only the most recent of2 resultswithin the time period is included. GLUCOSE 118 65 - 139 mg/dL [facility] Comment: Non-fasting reference interval UREA NITROGEN (BUN) 34(H) 7 - 25 mg/dL [facility] CREATININE 4.84(H) 0.60 - 0.95 mg/dL [facility] EGFR 9(L) > OR = 60 mL/min/1.7 3m2 [facility] BUN/CREATININE RATIO 7 6 - 22 (calc) [facility] SODIUM 141 135 - 146 mmol/L [facility] POTASSIUM 3.1(L) 3.5 - 5.3 mmol/L [facility] CHLORIDE 106 98 - 110 mmol/L [facility] CARBON DIOXIDE 23 20 - 32 mmol/L [facility] ELECTROLYTE BALANCE 12 7 - 17 mmol/L (calc) [facility] CALCIUM 9.5 8.6 - 10.4 mg/dL [facility] Blood BLOOD SPECIMEN / Unknown 11/08/2024 11:04 AM ANALYST MICROBIOLOGY LAB 11/08/2024 11:04 AM ANALYST MICROBIOLOGY LAB Narrative [facility] - 11/09/2024 6:29 AM ANALYST MICROBIOLOGY LAB FASTING:NO FASTING: NO Harmony Shafer MD CHEMISTRY Final Result [facility] [address] [place] [address], [facility] [address] [place] [phone] * (ABNORMAL) ELP AND FREE LIGHT CHAINS W REFLEX, BLOOD (11/08/2024 10:58 AM ANALYST MICROBIOLOGY LAB) ELP,ALBUMIN 3.75 3.31 - 5.31 g/dL 11/10/2024 6:45 PM ANALYST MICROBIOLOGY LAB [facility] ELP,ALPHA 1 0.44(H) 0.19 - 0.42 g/dL 11/10/2024 6:45 PM ANALYST MICROBIOLOGY LAB [facility] ELP,ALPHA 2 1.13(H) 0.44 - 1.03 g/dL 11/10/2024 6:45 PM [facility] ELP,GAMMA 1.11 0.59 - 1.46 g/dL 11/10/2024 6:45 PM [facility] ELP,BETA 1.07(H) 0.52 - 1.05 g/dL 11/10/2024 6:45 PM [facility] KAPPA FREE LIGHT CHAIN, S 9.44(H) 0.33 - 1.94 mg/dL 11/10/2024 6:45 PM [facility] LAMBDA FREE LIGHT CHAIN, S 6.11(H) 0.57 - 2.63 mg/dL 11/10/2024 6:45 PM [facility] KAPPA/LAMBDA FLC RATIO 1.55 0.26 - 1.65 11/10/2024 6:45 PM [facility] ELP INTERP,SERUM 1. Increased alpha-globulins, probably reactive. No monoclonal protein detected. 2. Slightly increased Beta-globulins, possible increase of Transferrin, C-3 complement, and/or Beta Lipoprotein. Interpreted and electronically signed by: Mylene Chino MD 11/10/2024 6:45 PM [facility] PROTEIN,TOTAL 7.5 6.0 - 8.0 g/dL 11/10/2024 6:45 PM [facility] Blood BLOOD SPECIMEN / Unknown [facility] / Unknown 11/08/2024 10:58 AM ANALYST MICROBIOLOGY LAB 11/08/2024 10:58 AM [facility] us Harmony Shafer MD CHEMISTRY Final Result [facility] [address] [place] [address], * (ABNORMAL) IMMUNOFIXATION,SERUM (11/08/2024 10:58 AM ANALYST MICROBIOLOGY LAB) IGG 1,153.45 610.30 - 1,616.00 mg/dL 11/10/2024 6:45 PM [facility] IGA 533.14(H) 84.50 - 499.00 mg/dL 11/10/2024 6:45 PM ANALYST MICROBIOLOGY LAB [facility] IGM 84.20 35.00 - 242.00 mg/dL 11/10/2024 6:45 PM ANALYST MICROBIOLOGY LAB [facility] IFIX INTERP,SERUM Immunofixation on serum shows no monoclonal protein detected and no free light chains detected. Interpreted and electronically signed by: Mylene Chino MD 11/10/2024 6:45 PM ANALYST MICROBIOLOGY LAB [facility] Blood BLOOD SPECIMEN / Unknown [facility] / Unknown 11/08/2024 10:58 AM ANALYST MICROBIOLOGY LAB 11/08/2024 10:58 AM ANALYST MICROBIOLOGY LAB us Harmony Shafer MD CHEMISTRY Final Result [facility] [address] [address], [place] * US RENAL AND BLADDER COMPLETE (11/08/2024 9:22 AM ANALYST MICROBIOLOGY LAB) Anatomical Region Laterality Modality Abdomen, AORTA, KIDNEYS Ultrasou nd 11/08/2024 4:23 PM ANALYST MICROBIOLOGY LAB Impressions 11/08/2024 4:23 PM ANALYST MICROBIOLOGY LAB Normal renal ultrasound. Dictated by Johan Muñiz MD @ 11/08/2024 4:23:59 PM (Electronically Signed) Narrative 11/08/2024 4:23 PM ANALYST MICROBIOLOGY LAB For Patients: As a result of the Century Cures Act, medical imaging exams and procedure reports are released immediately into your electronic medical record. You may view this report before your referring provider. If you have questions, please contact your health care provider. CLINICAL HISTORY: Stage 3b chronic kidney disease COMPARISON: none TECHNIQUE: Gonsales scale and color Doppler images were acquired of the kidneys and urinary bladder. FINDINGS: Sonographic images reveal a symmetric appearance of the kidneys. There is no evidence of hydronephrosis, mass or calculus. The right kidney measures 9.0cm in length and the left kidney measures 8.4cm in length. The renal cortex appears of normal thickness. Normal color Doppler imaging of both kidneys. The bladder is unremarkable. Procedure Note Johan Muñiz MD - 11/08/2024 For Patients: As a result of the Century Cures Act, medical imagingexams and procedure reports are released immediately into your electronicmedical record. You may view this report before your referring provider.If you have questions, please contact your health care provider. CLINICAL HISTORY: Stage 3b chronic kidney disease COMPARISON: none TECHNIQUE: Gonsales scale and color Doppler images were acquired of the kidneys andurinary bladder. FINDINGS: Sonographic images reveal a symmetric appearance of the kidneys. There isno evidence of hydronephrosis, mass or calculus. The right kidney measures9.0cm in length and the left kidney measures 8.4cm in length. The renalcortex appears of normal thickness. Normal color Doppler imaging of bothkidneys. The bladder is unremarkable. IMPRESSION: Normal renal ultrasound. Dictated by Johan Muñiz MD @ 11/08/2024 4:23:59 PM (Electronically Signed) Harmony Shafer MD US Final Result * (ABNORMAL) CYSTATIN C SERUM (10/31/2024 4:03 PM ANALYST MICROBIOLOGY LAB) CYSTATIN C 3.60(H) 0.52 - 1.07 mg/L [facility] eGFR (CYSTATIN C) 12(L) > OR = 60 mL/min/1.7 3m2 [facility] Blood BLOOD SPECIMEN / Unknown 10/31/2024 4:03 PM ANALYST MICROBIOLOGY LAB 10/31/2024 4:05 PM ANALYST MICROBIOLOGY LAB Narrative [facility] [place] - 11/03/2024 2:39 PM ANALYST MICROBIOLOGY LAB FASTING:NO FASTING: NO Harmony Shafer MD LABORATORY Final Result [facility] [address] [address] [place] [address], [facility] [address] [address] [address] * (ABNORMAL) CALCITRIOL(1 25 DI OH VIT D) (10/31/2024 4:03 PM ANALYST MICROBIOLOGY LAB) VITAMIN D, 1,25 (OH)2, TOTAL 14(L) 18 - 72 pg/mL [facility] VITAMIN D3, 1,25 (OH)2 14 pg/mL [facility] VITAMIN D2, 1,25 (OH)2 <8 pg/mL [facility] Comment: (Note) Vitamin D3, 1,25(OH)2 indicates both endogenous production and supplementation. Vitamin D2, 1,25(OH)2 is an indicator of exogenous sources, such as diet or supplementation. Interpretation and therapy are based on measurement of Vitamin D, 1,25 (OH)2, Total. This test was developed, and its analytical performance characteristics have been determined by [facility]. It has not been cleared or approved by the FDA. This assay has been validated pursuant to the CLIA regulations and is used for clinical purposes. For additional information, please refer to http://education.HelpMeRent.com/faq/CIV433 (This link is being provided for informational/educational purposes only.) [facility] [address] [address],[address] [place] [address] Teo Gutierrez MD, PhD Blood BLOOD SPECIMEN / Unknown 10/31/2024 4:03 PM ANALYST MICROBIOLOGY LAB 10/31/2024 4:05 PM ANALYST MICROBIOLOGY LAB [facility] - 11/03/2024 7:55 PM ANALYST MICROBIOLOGY LAB FASTING:NO FASTING: NO Harmony Shafer MD SEND OUTS Final Result [facility] [address] [address], [facility] [address] [address], [address] [place] [address] * VITAMIN D 25 (DEFICIENCY) (10/31/2024 4:03 PM ANALYST MICROBIOLOGY LAB) Pathologist [facility] VITAMIN D,25-OH,TOTAL,IA 40 30 - 100 ng/mL [facility] Comment: Vitamin D Status 25-OH Vitamin D: Deficiency: <20 ng/mL Insufficiency: 20 - 29 ng/mL Optimal: > or = 30 ng/mL For 25-OH Vitamin D testing on patients on D2-supplementation and patients for whom quantitation of D2 and D3 fractions is required, the [facility](TM) 25-OH VIT D, (D2,D3), LC/MS/MS is recommended: order code 73537 (patients >2yrs). See Note 1 Note 1 For additional information, please refer to http://education.HelpMeRent.com/faq/NWD065 (This link is being provided for informational/ educational purposes only.) Blood BLOOD SPECIMEN / Unknown 10/31/2024 4:03 PM ANALYST MICROBIOLOGY LAB 10/31/2024 4:05 PM ANALYST MICROBIOLOGY LAB Narrative [facility] - 11/01/2024 4:46 AM ANALYST MICROBIOLOGY LAB FASTING:NO FASTING: NO us Harmony Shafer MD SEND OUTS Final Result [facility] [address] [place] [address], [facility] [address] [place] [address] * (ABNORMAL) CBC AND DIFFERENTIAL (10/31/2024 4:03 PM ANALYST MICROBIOLOGY LAB) WHITE BLOOD CELL COUNT 9.3 3.8 - 10.8 Thousand/u L [facility] RED BLOOD CELL COUNT 3.12(L) 3.80 - 5.10 Million/uL [facility] HEMOGLOBIN 9.1(L) 11.7 - 15.5 g/dL [facility] HEMATOCRIT 27.6(L) 35.0 - 45.0 % [facility] MCV 88.5 80.0 - 100.0 fL [facility] MCH 29.2 27.0 - 33.0 pg [facility] MCHC 33.0 32.0 - 36.0 g/dL [facility] Comment: For adults, a slight decrease in the calculated MCHC value (in the range of 30 to 32 g/dL) is most likely not clinically significant; however, it should be interpreted with caution in correlation with other red cell parameters and the patient's clinical condition. RDW 16.1(H) 11.0 - 15.0 % [facility] PLATELET COUNT 319 140 - 400 Thousand/u L [facility] MPV 10.3 7.5 - 12.5 fL [facility] ABSOLUTE NEUTROPHILS 5,273 1,500 - 7,800 cells/uL [facility] ABSOLUTE LYMPHOCYTES 2,613 850 - 3,900 cells/uL [facility] ABSOLUTE MONOCYTES 1,014(H) 200 - 950 cells/uL [facility] ABSOLUTE EOSINOPHILS 316 15 - 500 cells/uL [facility] ABSOLUTE BASOPHILS 84 0 - 200 cells/uL [facility] NEUTROPHILS 56.7 % [facility] LYMPHOCYTES 28.1 % [facility] MONOCYTES 10.9 % [facility] EOSINOPHILS 3.4 % [facility] BASOPHILS 0.9 % [facility] Blood BLOOD SPECIMEN / Unknown 10/31/2024 4:03 PM ANALYST MICROBIOLOGY LAB 10/31/2024 4:05 PM ANALYST MICROBIOLOGY LAB Narrative [facility] - 11/01/2024 3:09 AM ANALYST MICROBIOLOGY LAB FASTING:NO FASTING: NO Harmony Shafer MD HEMATOLOGY Final Result [facility] [address] [place] [address], [facility] [address] [place] [address] * (ABNORMAL) PTH,INTACT (10/31/2024 4:03 PM ANALYST MICROBIOLOGY LAB) Pathologist [facility] PARATHYROID HORMONE, INTACT 167(H) 16 - 77 pg/mL [facility] Comment: Interpretive Guide Intact PTH Calcium ------- Normal Parathyroid Normal Normal Hypoparathyroidism Low or Low Normal Low Hyperparathyroidism Primary Normal or High High Secondary High Normal or Low Tertiary High High Non-Parathyroid Hypercalcemia Low or Low Normal High CALCIUM 8.6 8.6 - 10.4 mg/dL [facility] Blood BLOOD SPECIMEN / Unknown 10/31/2024 4:03 PM ANALYST MICROBIOLOGY LAB 10/31/2024 4:05 PM ANALYST MICROBIOLOGY LAB Narrative [facility] - 11/01/2024 1:01 PM ANALYST MICROBIOLOGY LAB FASTING:NO FASTING: NO Harmony Shafer MD SEND OUTS Final Result [facility] [address] [place] [address], [facility] [address] [facility] [place] [address] * MAGNESIUM (10/31/2024 4:03 PM ANALYST MICROBIOLOGY LAB) MAGNESIUM 2.2 1.5 - 2.5 mg/dL [facility] Blood BLOOD SPECIMEN / Unknown 10/31/2024 4:03 PM ANALYST MICROBIOLOGY LAB 10/31/2024 4:05 PM ANALYST MICROBIOLOGY LAB Narrative [facility] - 11/01/2024 4:55 AM ANALYST MICROBIOLOGY LAB FASTING:NO FASTING: NO Harmony Shafer MD CHEMISTRY Final Result [facility] [address] [place] [address], [facility] [address] [place] [address] from Last 3 Months Insurance MEDICARE PROVIDER [facility] MEDICARE [place] ONLY Advance Directives * Full Code (Latest Code Status on File) Date Activated Date Inactivated Comments 05/05/2013 8:21 AM 05/05/2013 2:07 PM Care Teams Checker Relationship Specialty Start Date End Date Chuckie Peters MD [address] [place] [address] PCP - General Family Practice 10/31/24
[2024-11-13 06:46] VITALS: BP 134/61; PULSE 82; RESP 16; TEMP 36.7; O2SAT 98; BMI 23.4
--- NOTE | 2024-11-13 07:00 | CRLHL7_ITS ---
For Patients: As a result of the Century Cures Act, medical imaging exams and procedure reports are released immediately into your electronic medical record. You may view this report before your referring provider. If you have questions, please contact your health care provider. INDICATION: Left lower quadrant pain. History of kidney disease. TECHNIQUE: CT abdomen and pelvis without contrast. COMPARISON: None FINDINGS: Lower chest: Large calcified granuloma lateral left lower lobe. Moderately large sliding-type hiatus hernia. Liver: Unremarkable. Spleen: Numerous punctate calcified granulomas. Pancreas: Unremarkable. Gallbladder and bile ducts: Layering stones within an upper normal-sized gallbladder. No wall thickening or inflammation appreciated. Kidneys: Small nonobstructing calculi upper pole of each kidney. Vascular calcifications in the eugenio. No hydronephrosis. No obvious mass or cyst. No ureteral dilatation or filling defects. Upper normal physiologic distention of urinary bladder without wall thickening or diverticula. Adrenal glands: Unremarkable. GI tract: Massive amount of dense formed stool. Redundant colon. No obvious wall thickening or inflammation. No dilatation of small bowel. Appendix is not identified. No pericecal inflammation. Vascular structures: Moderate atherosclerosis calcifications diffusely. Lymph nodes: Unremarkable. Miscellaneous: Unremarkable. No free air or significant free fluid. Pelvic Organs: Small punctate calcification right uterine fundus likely small fibroid. Bones: Unremarkable for age. IMPRESSION: Small nonobstructing upper pole caliceal calculi bilaterally. Prominent acute on chronic constipation. Cholelithiasis. Moderate-sized hiatus hernia. Splenic and left lung base granulomas. Please note that all CT scans at this facility use dose modulation, iterative reconstruction, and/or weight-based dosing when appropriate to reduce radiation dose to as low as reasonably achievable. Dictated by Wai Mcmillan MD @ 11/13/2024 7:42:59 AM (Electronically Signed)
--- NOTE | 2024-11-13 07:04 | ED_ITS ---
HPI - General Adult General Chief complaint: Nausea/Vomiting <Francisca Arias MD - Last Filed: 11/15/24 06:08> Stated complaint: vomiting/constipated kidney failure <Francisca Arias MD - Last Filed: 11/15/24 06:08> Time Seen by Provider: 11/13/24 06:32 <Francisca Arias MD - Last Filed: 11/15/24 06:08> Source: patient and family <Francisca Arias MD - Last Filed: 11/15/24 06:08> Mode of arrival: ambulatory <Francisca Arias MD - Last Filed: 11/15/24 06:08> Limitations: no limitations <Francisca Arias MD - Last Filed: 11/15/24 06:08> History of Present Illness HPI narrative: 79-year-old female presents to the ED with son. She has a notable history of recent kidney failure, sounds like it was idiopathic but kidney function is not fully recovering. I have a note from a environmental services floor tech through [facility]. It looks like she was just seen 2 weeks ago. Her creatinine had improved from 9-5 but her kidney function is still quite abnormal. It sounds like she has lost 12 lb in the last couple of months as well. She was hospitalized down in [place] so the records are not available to us. She has been constipated for the past 8 days, had a very small bowel movement 3 days ago, not significant. She took 2 Dulcolax stool softeners last night with no improvement in symptoms which is not unexpected. She is uncertain what would be safe for her in the setting of her kidney disease. She says that her lower abdomen aches and she had a single e pisode of vomiting this morning. She was too weak to get out of bed and her son had to help her. He states that she is mentating at baseline but she seems very weak to me. This was the 1st episode of vomiting just today. Reports that she has had prior colonoscopies before that were normal. No prior abdominal surgeries of any kind, no history of bowel obstructions. She does not take any anticoagulants. There has been no abdominal trauma. No dysuria, nephrology notes reflect an MRI of the kidneys performed within the last couple of months that was nonrevealing. The etiology of her kidney failure is unknown. Patient does report achy pain and she points the pelvis but the torso to the left lower quadrant for me. She denies a prior history of diverticulitis. She is not running fevers and also denies body aches and chills but does endorse weakness. Denies prior similar episodes but states that she is prone to constipation. Past medical history is most notable for hypertension in the recent kidney failure. She also has hyperlipidemia an overactive bladder. Allergy to penicillin which causes hives. ROS is notable for the weakness, abdominal symptoms as stated above, otherwise denies times 12 systems but some of them do seem a bit positive to me on initial general inspection. <Francisca Arias MD - Last Filed: 11/15/24 06:08> Related Data Home medications: Home Medications ?Medication ?Instructions ?Recorded ?Confirmed calcium 500 mg (as 2 tab PO DAILY 05/19/22 11/13/24 carbonate)-vitamin D3 10 mcg (400 unit) tablet hydroxocobalamin 1,000 mcg/mL 1,000 mcg IM MONTHLY 05/19/22 11/13/24 intramuscular solution amlodipine 5 mg tablet 5 mg PO BID 11/13/24 11/13/24 ergocalciferol (vitamin D2) 1,250 1,250 mcg PO Q7D 11/13/24 11/13/24 mcg (50,000 unit) capsule gabapentin 100 mg capsule 100 mg PO HS 11/13/24 11/13/24 omeprazole 20 mg capsule,delayed 20 mg PO DAILY PRN 11/13/24 11/13/24 release sodium bicarbonate 650 mg tablet 650 mg PO BID 11/13/24 11/13/24 Previous Rx's ?Medication ?Instructions ?Recorded levothyroxine 50 mcg tablet 50 mcg PO DAILY #90 tabs 08/05/24 rosuvastatin 20 mg tablet 20 mg PO QDAY #90 tabs 08/05/24 solifenacin 10 mg tablet 10 mg PO DAILY #90 tabs 08/05/24 sennosides 8.6 mg-docusate sodium 2 tab PO BID #100 tabs 11/14/24 50 mg tablet (Stool Softener-Laxative) <Francisca Arias MD - Last Filed: 11/15/24 06:08> Allergies/adverse reactions: Allergies Allergy/AdvReac Type Severity Reaction Status Date / Time Penicillins Allergy Intermediate Hives Verified 11/13/24 06:48 insect venom AdvReac Verified 09/01/24 09:15 <Francisca Arias MD - Last Filed: 11/15/24 06:08> [facility] Medical History: Medical History (Updated 11/14/24 @ 13:20 by Avinash Castillo MD) Cholelithiasis ?K80.20 - Calculus of gallbladder without cholecystitis without obstruction (ICD-10) Cognitive impairment ?R41.89 - Other symptoms and signs involving cognitive functions and jose reness (ICD-10) Unsteady gait ?R26.81 - Unsteadiness on feet (ICD-10) Weakness ?R53.1 - Weakness (ICD-10) Squamous cell carcinoma Actinic keratosis ?L57.0 - Actinic keratosis (ICD-10) Basal cell carcinoma (BCC) ?C44.91 - Basal cell carcinoma of skin, unspecified (ICD-10) Gastroesophageal reflux disease ?K21.9 - Gastro-esophageal reflux disease without esophagitis (ICD-10) Macular degeneration ?H35.30 - Unspecified macular degeneration (ICD-10) Hypertension ?I10 - Essential (primary) hypertension (ICD-10) Hypercholesteremia ?E78.00 - Pure hypercholesterolemia, unspecified (ICD-10) Shoulder pain ?M25.519 - Pain in unspecified shoulder (ICD-10) Left shoulder pain ?M25.512 - Pain in left shoulder (ICD-10) B12 deficiency ?E53.8 - Deficiency of other specified B group vitamins (ICD-10) Restless legs syndrome ?G25.81 - Restless legs syndrome (ICD-10) Constipation by delayed colonic transit ?K59.01 - Slow transit constipation (ICD-10) Back pain ?M54.9 - Dorsalgia, unspecified (ICD-10) Urge incontinence ?N39.41 - Urge incontinence (ICD-10) Hypothyroid ?E03.9 - Hypothyroidism, unspecified (ICD-10) Urinary urgency ?R39.15 - Urgency of urination (ICD-10) Fatigue ?R53.83 - Other fatigue (ICD-10) <Francisca Arias MD - Last Filed: 11/15/24 06:08> Surgical History: Surgical History H/O excision of ganglion cyst (05/18/24) ?Z98.890 - Other specified postprocedural states (ICD-10) H/O pelvic surgery ?Z98.890 - Other specified postprocedural states (ICD-10) History of third molar tooth extraction ?K08.409 - Partial loss of teeth, unspecified cause, unspecified class (ICD- 10) History of section ?Z98.891 - History of uterine scar from previous surgery (ICD-10) <Francisca Arias MD - Last Filed: 11/15/24 06:08> Family History: Family History Mother Alcohol abuse Liver cancer Lung cancer Brother Alcohol abuse Father Aspiration pneumonitis Hip fracture Major depression <Francisca Arias MD - Last Filed: 11/15/24 06:08> Social History: Social History (Updated 11/13/24 @ 16:57 by Avinash Castillo MD) Narrative: She lives in [place] in the wintertime. She was brought to [place] by her 2 sons, Manohar and Luther who live in [place], after her hospitalization in [place]. Her sons are healthcare power of workers compensation defense attorney. Code status is full. She is a former smoker having quit around age 48. She tells me she drinks 1 alcoholic beverage per week but medical records from [facility] indicate 6 drinks per week. What is your current living situation?: I presently have a place to live Problems where you live: no known problems Problems where you live details: none known In the past 12 months, utilities in danger of being shut off: no In past 12 months, lack of transportation kept you from medical appts, meetings, work, or getting things needed for daily living: no In the past 12 mos, have been you worried that your food would run out before you had money to buy more?: never true In the past 12 mos, the food you bought just didn't last and you didn't have money to buy more?: never true Smoking Status: Former smoker Do you use any of these nicotine containing products: None Second hand tobacco smoke exposure: No How often do you have a drink containing alcohol: monthly or less How many standard drinks containing alcohol do you have on a typical day: 3 or 4 How often do you have six or more drinks on one occasion: Never AUDIT-C Alcohol total score: 2 Non-prescribed substance use: denies use Caffeine: Yes How often does anyone, including family, friends and others, physically hurt you : never How often does anyone, including family, friends and others, insult or talk down to you: never How often does anyone, including family, friends and others, threaten you with harm: never How often does anyone, including family, friends and others, scream or curse at you: never Are you using contraception or practicing any form of control: No <Francisca Arias MD - Last Filed: 11/15/24 06:08> Exam Const: Vital Signs, click to edit/add: Vital Signs - 24 hr 11/13/24 06:46 Temperature 98.0 F Pulse Rate [Pulse Oximeter] 82 Respiratory Rate 16 Blood Pressure [Le ft Upper Arm] 134/61 Pulse Oximetry 98 Oxygen Delivery Me thod Room Air <Francisca Arias MD - Last Filed: 11/15/24 06:08> Vital Signs, click to edit/add: Vital Signs - 24 hr 11/13/24 06:46 Temperature 98.0 F Pulse Rate [Pulse Oximeter] 82 Respiratory Rate 16 Blood Pressure [Le ft Upper Arm] 134/61 Pulse Oximetry 98 Oxygen Delivery Me thod Room Air <Tuloi Laureano MD - Last Filed: 11/13/24 13:38> Documenting provider has reviewed patient's vital signs: yes <Francisca Arias MD - Last Filed: 11/15/24 06:08> Common normals: no apparent distress and alert <Francisca Arias MD - Last Filed: 11/15/24 06:08> General appearance: well kempt <Francisca Arias MD - Last Filed: 11/15/24 06:08> Other: Calm and clean. A bit hard of hearing and seems very fatigued. Has difficulty answering questions and defers to her son a lot but much of it seems behavioral and due to fatigue rather than true confusion. <Francisca Arias MD - Last Filed: 11/15/24 06:08> HENMT: Other: Dry mucous membranes. Normal appearing dentition. Normal facial exam. <MD Hue Galvan Last Filed: 11/15/24 06:08> Eye: Common normals: conjunctivae normal <MD Hue Galvan Last Filed: 11/15/24 06:08> General eye: normal appearance of both eyes <MD Hue Galvan Last Filed: 11/15/24 06:08> Conjunctiva: conjunctiva(e) normal <MD Hue Galvan Last Filed: 11/15/24 06:08> Neck & C-Spine: Common normals: full ROM and no lymphadenopathy <MD Hue Galvan Last Filed: 11/15/24 06:08> General: normal visual inspection <MD Hue Galvan Last Filed: 11/15/24 06:08> Resp: Common normals: normal respiratory effort, no use of accessory muscles and clear to auscultation bilaterally <MD Hue Galvan Last Filed: 11/15/24 06:08> Effort & inspection: able to speak in complete sentences <MD Hue Galvan Last Filed: 11/15/24 06:08> Auscultation: clear to auscultation bilaterally <MD Hue Galvan Last Filed: 11/15/24 06:08> Cardio: Common normals: regular rate, regular rhythm, S1 normal heart sound, S2 normal heart sound and no murmurs <MD Hue Galvan Last Filed: 11/15/24 06:08> Rate: regular rate <MD Hue Galvan Last Filed: 11/15/24 06:08> Rhythm: regular rhythm <MD Hue Galvan Last Filed: 11/15/24 06:08> Heart sounds: S1 normal and S2 normal <MD Hue Galvan Last Filed: 11/15/24 06:08> GI: Other: Lower abdomen seems a little distended, especially over on the left lower area. She is tender to palpation and there does seem to be just a little bit of guarding. I think this is more than just a simple constipation. Does not seem to have rebound tenderness. There is a definite fullness to the left lower quadrant but it is difficult to say if this is a mass. There certainly no mass in the upper abdomen. <Francisca Arias MD - Last Filed: 11/15/24 06:08> Extremity: Common normals: normal to inspection, normal capillary refill and no pedal edema <Francisca Arias MD - Last Filed: 11/15/24 06:08> Neuro: Sensorium/orientation: alert <Francisca Arias MD - Last Filed: 11/15/24 06:08> Speech: speech normal <Francisca Arias MD - Last Filed: 11/15/24 06:08> Other: Generalized weakness but can move extremities on exam. Barely enough strength to use the bed rails to pull herself from semi-Encarnacion's to sitting. <Francisca Arias MD - Last Filed: 11/15/24 06:08> Psych: Appearance: well kempt <Francisca Arias MD - Last Filed: 11/15/24 06:08> Attitude: calm <Francisca Arias MD - Last Filed: 11/15/24 06:08> Insight: fair <Francisca Arias MD - Last Filed: 11/15/24 06:08> Judgement: fair <Francisca Arias MD - Last Filed: 11/15/24 06:08> Skin: Common normals: no rashes or lesions noted <Francisca Arias MD - Last Filed: 11/15/24 06:08> General skin exam: no rashes or lesions noted <Francisca Arias MD - Last Filed: 11/15/24 06:08> Course Course ED Course: 79-year-old female with reported constipation but clinical exam is more suggestive of left lower quadrant pain accompanied by vomiting and weakness. Suspicious for diverticulitis, bowel obstruction, abdominal mass, potentially constipation, kidney stone, volvulus, amongst others. This really does not seem like a simple constipation to me I have recommended that we put in an IV, give a little IV fluid, will start with normal saline 500 mL x1. Will give Zofran 4 mg IV x1, will try to restrict this to just 1 dose due to her episode of vomiting today. She already appears to be borderline dehydrated I do not want to worsen this. Will obtain a CT of the abdomen and pelvis but without contrast due to her poor kidney status. Counseled family this may impair my ability to get good images but it really does seem necessary. It will also tell is that this is a simple constipation and we can then discuss management. <Francisca Arias MD - Last Filed: 11/15/24 06:08> Reevaluation(s) Time of Reevaluation #1: 08:00 <Francisca Arias MD - Last Filed: 11/15/24 06:08> Reevaluation #1: Counseled family on findings. CT shows acute on chronic constipation but thankfully no signs of perforation, obstruction, diverticulitis, appendicitis or other abnormality. Blood work is actually better than expected, creatinine is slightly improved. No major electrolyte abnormalities but there is a slight amount of leukocytosis which is not terribly unexpected. Lactate levels and CRP are reassuring. Counseled family on management. We will need to use both a rectal and oral route to treat this and we will remove some of the hardened feces today with an enema but we will not be able to completely evacuate the constipation, they will have homework for this. Will start with 2 tablets of senna, a single dose of MiraLax and then will initiate a pink lady enema. The pink lady enema since it is given rectally is not ideal for recurrent use but can be considered appropriately in this patient with chronic kidney disease due to the rectal route and intention of single dose only. Would not recommend repeat dosing of any magnesium based products if necessary. Will hand over care to incoming day shift partner. <Francisca Arias MD - Last Filed: 11/15/24 06:08> Reevaluation #2: Patient signed out to Dr. Laureano at shift change-8:00 a.m.. Recheck-after pink lady enema, patient had no substantial results. Nurses report that she was very weak, needed assistance to get out of bed to the commode and back. She was not really able to hold the enema and therefore did not have much stool output from it. Her nurse did manually disimpact a few small hard stool balls. Patient is feeling slightly better. Nurses expressed to me their significant concern that she is too weak to go home. Patient overall is weak. No focal deficits. Somewhat drowsy. She says she is tired from being up all night. I also wonder if there could be some superimposed depression. I brought her son back from the waiting room. The 3 of us discussed together. Her son agrees that she is quite weak. At this point he does not think she will be able to manage getting back and forth to the toilet at home with oral laxatives to manage her constipation. Additionally, she has risk of developing dehydration if she does develop liquidy stool output after MiraLax, and the risk of electrolyte shifts with her kidney function. We agree that it is not safe to discharge the patient home at this point. Discussed with our hospitalist, Dr. Castillo who graciously agrees to admit this patient for observation to the medical floor so she can undergo bowel regimen with nursing support. <Tulio Laureano MD - Last Filed: 11/13/24 13:38> Vital Signs Vital signs: Initial Vital Signs Temperature 98.0 F 11/13/24 06:46 Temperature Source Temporal Artery Scan 11/13/24 06:46 Pulse Rate 82 11/13/24 06:46 Respiratory Rate 16 11/13/24 06:46 Blood Pressure 134/61 11/13/24 06:46 Blood Pressure Mean 85 11/13/24 06:46 Blood Pressure Position Sitting 11/13/24 06:46 Pulse Oximetry 98 11/13/24 06:46 Oxygen Delivery Method Room Air 11/13/24 06:46 Vital Signs Temperature 98.0 F 11/13/24 06:46 Pulse Rate 82 11/13/24 06:46 Respiratory Rate 16 11/13/24 06:46 Blood Pressure 134/61 11/13/24 06:46 Pulse Oximetry 98 11/13/24 06:46 Oxygen Delivery Method Room Air 11/13/24 06:46 Temperature 98.3 F 11/14/24 10:48 Pulse Rate 71 11/14/24 10:48 Respiratory Rate 14 11/14/24 10:48 Blood Pressure 104/47 L 11/14/24 10:48 Pulse Oximetry 95 11/14/24 10:48 Oxygen Delivery Method Room Air 11/14/24 10:48 <Francisca Arias MD - Last Filed: 11/15/24 06:08> Initial Vital Signs Temperature 98.0 F 11/13/24 06:46 Temperature Source Temporal Artery Scan 11/13/24 06:46 Pulse Rate 82 11/13/24 06:46 Respiratory Rate 16 11/13/24 06:46 Blood Pressure 134/61 11/13/24 06:46 Blood Pressure Mean 85 11/13/24 06:46 Blood Pressure Position Sitting 11/13/24 06:46 Pulse Oximetry 98 11/13/24 06:46 Oxygen Delivery Method Room Air 11/13/24 06:46 Vital Signs Temperature 98.0 F 11/13/24 06:46 Pulse Rate 82 11/13/24 06:46 Respiratory Rate 16 11/13/24 06:46 Blood Pressure 134/61 11/13/24 06:46 Pulse Oximetry 98 11/13/24 06:46 Oxygen Delivery Method Room Air 11/13/24 06:46 Temperature 98.3 F 11/14/24 10:48 Pulse Rate 71 11/14/24 10:48 Respiratory Rate 14 11/14/24 10:48 Blood Pressure 104/47 L 11/14/24 10:48 Pulse Oximetry 95 11/14/24 10:48 Oxygen Delivery Method Room Air 11/14/24 10:48 <Tulio Laureano MD - Last Filed: 11/13/24 13:38> Medications Administered Medications: Discontinued Medications Generic Name Dose Route Start Last Admin Trade Name Bree PRN Reason Stop Dose Admin Acetaminophen 650 mg 11/14/24 07:51 11/14/24 08:01 Acetaminophen 325 Mg Tablet PO 650 mg Q6H PRN Administration As needed for fever, headache, or minor pain Bisacodyl 10 mg 11/13/24 11:28 11/13/24 13:12 Bisacodyl 10 Mg Supp.Rect VA 11/13/24 11:29 10 mg ONCE ONE Administration Bisacodyl 10 mg 11/14/24 08:30 11/14/24 13:04 Bisacodyl 10 Mg Supp.Rect VA Not Given DAILY VANGIE Gabapentin 100 mg 11/13/24 21:00 11/13/24 21:03 Gabapentin 100 Mg Capsule PO 100 mg HS VANGIE Administration Sodium Chloride 500 mls @ 500 mls/hr 11/13/24 07:00 11/13/24 08:22 0.9 % Sodium Chloride 500 Ml IV 11/13/24 07:59 Infused .Q1H ONE Infusion Lactated Ringer's 500 mls @ 500 mls/hr 11/13/24 12:29 11/14/24 11:59 Lactated Ringers 500 Ml IV 11/13/24 13:28 Infused .Q1H ONE Infusion Lactated Ringer's 1,000 mls @ 75 mls/hr 11/13/24 12:30 11/14/24 06:14 Lactated Ringers 1000 Ml IV 75 mls/hr .[id number] VANGIE Administration Levothyroxine Sodium 50 mcg 11/14/24 07:00 11/14/24 06:14 Levothyroxine 50 Mcg Tablet PO 50 mcg DAILY@0700 VANGIE Administration Magnesium Citrate 300 ml 11/13/24 11:28 11/14/24 12:00 Magnesium Citrate 300 Ml Solution PO 11/13/24 11:29 Not Given ONCE ONE Miscellaneous Medication 376 ml 11/13/24 07:44 11/13/24 09:05 Doc/Min Oil/Mag Cit/Sod Phos 376 Ml Enema VA 11/13/24 07:45 376 ml ONCE ONE Administration Omeprazole 20 mg 11/14/24 07:00 11/14/24 06:14 Omeprazole [address] PO 20 mg DAILY@0700 VANGIE Administration Ondansetron HCl 4 mg 11/13/24 07:00 11/13/24 07:07 Ondansetron 2 Mg/Ml Inj IVP 11/13/24 07:01 4 mg ONCE ONE Administration Polyethylene Glycol 17 gm 11/13/24 07:44 11/13/24 08:22 Polyethylene Glycol 3350 17 Gm Pack PO 11/13/24 07:45 17 gm ONCE ONE Administration Polyethylene Glycol 17 gm 11/14/24 09:00 11/14/24 10:59 Polyethylene Glycol 3350 17 Gm Pack PO 17 gm BID VANGIE Administration Potassium Bicarbonate 25 meq 11/14/24 07:47 11/14/24 08:06 Potassium Bicarb 25 Meq Effervescent Tab PO 11/14/24 07:48 25 meq ONCE ONE Administration Rosuvastatin Calcium 20 mg 11/14/24 09:00 11/14/24 08:02 Rosuvastatin Calcium 10 Mg Tablet PO 20 mg DAILY VANGIE Administration Senna/Docusate Sodium 2 tab 11/13/24 21:00 11/14/24 08:02 Sennosides/Docusate Tablet PO 2 tab BID VANGIE Administration Sennosides 2 tab 11/13/24 07:45 11/13/24 08:22 Sennosides 1 Tab Tablet PO 11/13/24 07:46 2 tab ONCE ONE Administration Sodium Bicarbonate 650 mg 11/13/24 21:00 11/14/24 08:02 Sodium Bicarbonate 650 Mg Tablet PO 650 mg BID VANGIE Administration Sodium Chloride 5 ml 11/13/24 21:00 11/14/24 08:02 Sodium Chloride 0.9 % (Flush) 10 Ml Syringe IVF Not Given BID VANGIE <Francisca Arias MD - Last Filed: 11/15/24 06:08> Discontinued Medications Generic Name Dose Route Start Last Admin Trade Name Freq PRN Reason Stop Dose Admin Acetaminophen 650 mg 11/14/24 07:51 11/14/24 08:01 Acetaminophen 325 Mg Tablet PO 650 mg Q6H PRN Administration As needed for fever, headache, or minor pain Bisacodyl 10 mg 11/13/24 11:28 11/13/24 13:12 Bisacodyl 10 Mg Supp.Rect VA 11/13/24 11:29 10 mg ONCE ONE Administration Bisacodyl 10 mg 11/14/24 08:30 11/14/24 13:04 Bisacodyl 10 Mg Supp.Rect VA Not Given DAILY VANGIE Gabapentin 100 mg 11/13/24 21:00 11/13/24 21:03 Gabapentin 100 Mg Capsule PO 100 mg HS VANGIE Administration Sodium Chloride 500 mls @ 500 mls/hr 11/13/24 07:00 11/13/24 08:22 0.9 % Sodium Chloride 500 Ml IV 11/13/24 07:59 Infused .Q1H ONE Infusion Lactated Ringer's 500 mls @ 500 mls/hr 11/13/24 12:29 11/14/24 11:59 Lactated Ringers 500 Ml IV 11/13/24 13:28 Infused .Q1H ONE Infusion Lactated Ringer's 1,000 mls @ 75 mls/hr 11/13/24 12:30 11/14/24 06:14 Lactated Ringers 1000 Ml IV 75 mls/hr .[id number] VANGIE Administration Levothyroxine Sodium 50 mcg 11/14/24 07:00 11/14/24 06:14 Levothyroxine 50 Mcg Tablet PO 50 mcg DAILY@0700 VANGIE Administration Magnesium Citrate 300 ml 11/13/24 11:28 11/14/24 12:00 Magnesium Citrate 300 Ml Solution PO 11/13/24 11:29 Not Given ONCE ONE Miscellaneous Medication 376 ml 11/13/24 07:44 11/13/24 09:05 Doc/Min Oil/Mag Cit/Sod Phos 376 Ml Enema VA 11/13/24 07:45 376 ml ONCE ONE Administration Omeprazole 20 mg 11/14/24 07:00 11/14/24 06:14 Omeprazole [address] PO 20 mg DAILY@0700 VANGIE Administration Ondansetron HCl 4 mg 11/13/24 07:00 11/13/24 07:07 Ondansetron 2 Mg/Ml Inj IVP 11/13/24 07:01 4 mg ONCE ONE Administration Polyethylene Glycol 17 gm 11/13/24 07:44 11/13/24 08:22 Polyethylene Glycol 3350 17 Gm Pack PO 11/13/24 07:45 17 gm ONCE ONE Administration Polyethylene Glycol 17 gm 11/14/24 09:00 11/14/24 10:59 Polyethylene Glycol 3350 17 Gm Pack PO 17 gm BID VANGIE Administration Potassium Bicarbonate 25 meq 11/14/24 07:47 11/14/24 08:06 Potassium Bicarb 25 Meq Effervescent Tab PO 11/14/24 07:48 25 meq ONCE ONE Administration Rosuvastatin Calcium 20 mg 11/14/24 09:00 11/14/24 08:02 Rosuvastatin Calcium 10 Mg Tablet PO 20 mg DAILY VANGIE Administration Senna/Docusate Sodium 2 tab 11/13/24 21:00 11/14/24 08:02 Sennosides/Docusate Tablet PO 2 tab BID VANGIE Administration Sennosides 2 tab 11/13/24 07:45 11/13/24 08:22 Sennosides 1 Tab Tablet PO 11/13/24 07:46 2 tab ONCE ONE Administration Sodium Bicarbonate 650 mg 11/13/24 21:00 11/14/24 08:02 Sodium Bicarbonate 650 Mg Tablet PO 650 mg BID VANGIE Administration Sodium Chloride 5 ml 11/13/24 21:00 11/14/24 08:02 Sodium Chloride 0.9 % (Flush) 10 Ml Syringe IVF Not Given BID VANGIE <Tulio Laureano MD - Last Filed: 11/13/24 13:38> Medical Decision Making Lab Data Lab results reviewed: Yes I reviewed the patient's lab results <Francisca Arias MD - Last Filed: 11/15/24 06:08> Lab results narrative: Mild leukocytosis but electrolytes within appropriate limits, creatinine is actually better than last checked. CRP and lactate are very reassuring. No signs of sepsis. <Francisca Arias MD - Last Filed: 11/15/24 06:08> Labs: Lab Results 11/13/24 11/13/24 11/13/24 Range/Units 07:05 11:31 12:40 WBC 14.30 H (4.50-11.00) K/uL RBC 3.21 L (4.00-5.20) m/uL Hgb 9.2 L (12.0-16.0) gm/dL Hct 28.1 L (33.0-51.0) % MCV 88 (80-100) fL MCH 29 (26-34) pg MCHC 33 (32-36) gm/dL RDW Coeff of Melinda 18.1 H (11.5-15.5) % Plt Count 260 (140-440) K/uL Neut % (Auto) 84.0 H (42.0-72.0) % Lymph % (Auto) 9.1 L (20-44) % Hopkins % (Auto) 6.2 (0.0-11.0) % Eos % (Auto) 0.3 (0.0-7.0) % Baso % (Auto) 0.3 (0.0-3.0) % Neut # (Auto) 12.00 H (1.7-7.0) K/uL Lymph # (Auto) 1.30 (0.90-2.90) K/uL Hopkins # (Auto) 0.90 (0.00-0.90) K/UL Eos # (Auto) 0.00 (0.00-0.50) K/uL Baso # (Auto) 0.00 (0.00-0.30) K/uL Abs Immat Gran (auto) 0.00 (0.00-0.30) K/uL Imm/Tot Granulo (auto) 0.1 % Sodium 140 (135-149) mmol/L Potassium 3.3 L (3.6-5.1) mmol/L Chloride 107 (96-114) mmol/L Carbon Dioxide 21 (20-32) mmol/L Anion Gap 12 (7-15) mEq/L BUN 37 H (7-30) mg/dL Creatinine 4.3 H (0.5-1.5) mg/dL Estimated Creat Clear 7.37 Estimated GFR 10 ml/min Glucose 126 H (60-115) mg/dL Lactate 0.9 (0.5-1.9) mmol/L Calcium 10.2 (8.4-10.6) mg/dL Magnesium 3.6 H (1.5-2.6) mg/dL Total Bilirubin 0.9 (0.1-1.5) mg/dL AST 32 (12-35) U/L ALT 17 (4-35) U/L Alkaline Phosphatase 77 (40-150) U/L C-Reactive Protein < 0.5 L (0.5-1.0) mg/dL Total Protein 7.4 (6.0-8.3) g/dL Albumin 4.1 (3.3-5.0) g/dL Lipase 159 (23-300) U/L Urine Color Yellow (Yellow) Urine Appearance Slightly Cloudy A (Clear) Urine pH 7.0 (5.0-8.5) Ur Specific [place] 1.020 (1.000-1.030) Urine Protein 2+ A (Negative) Urine Glucose (UA) Trace A (Negative) Urine Ketones 1+ A (Negative) Urine Blood 2+ A (Negative) Urine Nitrite Negative (Negative) Urine Bilirubin Negative (Negative) Urine Urobilinogen 0.2 (0.2-1.0) Ur Leukocyte Esterase Trace A (Negative) Urine RBC 10-25 A (0-2) Urine WBC 10-25 A (0-5) Ur Squamous Epith Cells Few (None-Few) Urine Bacteria Many A (None) Lab Acknowledgement Test Added <Francisca Arias MD - Last Filed: 11/15/24 06:08> Lab Results 11/13/24 11/13/24 11/13/24 Range/Units 07:05 11:31 12:40 WBC 14.30 H (4.50-11.00) K/uL RBC 3.21 L (4.00-5.20) m/uL Hgb 9.2 L (12.0-16.0) gm/dL Hct 28.1 L (33.0-51.0) % MCV 88 (80-100) fL MCH 29 (26-34) pg MCHC 33 (32-36) gm/dL RDW Coeff of Melinda 18.1 H (11.5-15.5) % Plt Count 260 (140-440) K/uL Neut % (Auto) 84.0 H (42.0-72.0) % Lymph % (Auto) 9.1 L (20-44) % Hopkins % (Auto) 6.2 (0.0-11.0) % Eos % (Auto) 0.3 (0.0-7.0) % Baso % (Auto) 0.3 (0.0-3.0) % Neut # (Auto) 12.00 H (1.7-7.0) K/uL Lymph # (Auto) 1.30 (0.90-2.90) K/uL Hopkins # (Auto) 0.90 (0.00-0.90) K/UL Eos # (Auto) 0.00 (0.00-0.50) K/uL Baso # (Auto) 0.00 (0.00-0.30) K/uL Abs Immat Gran (auto) 0.00 (0.00-0.30) K/uL Imm/Tot Granulo (auto) 0.1 % Sodium 140 (135-149) mmol/L Potassium 3.3 L (3.6-5.1) mmol/L Chloride 107 (96-114) mmol/L Carbon Dioxide 21 (20-32) mmol/L Anion Gap 12 (7-15) mEq/L BUN 37 H (7-30) mg/dL Creatinine 4.3 H (0.5-1.5) mg/dL Estimated Creat Clear 7.37 Estimated GFR 10 ml/min Glucose 126 H (60-115) mg/dL Lactate 0.9 (0.5-1.9) mmol/L Calcium 10.2 (8.4-10.6) mg/dL Magnesium 3.6 H (1.5-2.6) mg/dL Total Bilirubin 0.9 (0.1-1.5) mg/dL AST 32 (12-35) U/L ALT 17 (4-35) U/L Alkaline Phosphatase 77 (40-150) U/L C-Reactive Protein < 0.5 L (0.5-1.0) mg/dL Total Protein 7.4 (6.0-8.3) g/dL Albumin 4.1 (3.3-5.0) g/dL Lipase 159 (23-300) U/L Urine Color Yellow (Yellow) Urine Appearance Slightly Cloudy A (Clear) Urine pH 7.0 (5.0-8.5) Ur Specific [place] 1.020 (1.000-1.030) Urine Protein 2+ A (Negative) Urine Glucose (UA) Trace A (Negative) Urine Ketones 1+ A (Negative) Urine Blood 2+ A (Negative) Urine Nitrite Negative (Negative) Urine Bilirubin Negative (Negative) Urine Urobilinogen 0.2 (0.2-1.0) Ur Leukocyte Esterase Trace A (Negative) Urine RBC 10-25 A (0-2) Urine WBC 10-25 A (0-5) Ur Squamous Epith Cells Few (None-Few) Urine Bacteria Many A (None) Lab Acknowledgement Test Added <Tulio Laureano MD - Last Filed: 11/13/24 13:38> Imaging Data CT scan - abdomen: Attestation: I have reviewed the pertinent imaging results. <Francisca Arias MD - Last Filed: 11/15/24 06:08> My impression: Impressive constipation but no obvious signs of inflammation of the appendix, diverticulitis, perforation or obstruction. <Francisca Arias MD - Last Filed: 11/15/24 06:08> Radiologist's impression: IMPRESSION: Small nonobstructing upper pole caliceal calculi bilaterally. Prominent acute on chronic constipation. Cholelithiasis. Moderate-sized hiatus hernia. Splenic and left lung base granulomas. Please note that all CT scans at this facility use dose modulation, iterative reconstruction, and/or weight-based dosing when appropriate to reduce radiation dose to as low as reasonably achievable. Dictated by Wai Mcmillan MD @ 11/13/2024 7:42:59 AM <Francisca Arias MD - Last Filed: 11/15/24 06:08> Discharge Plan Discharge Clinical Impression: Fecal impaction, Chronic constipation, Generalized weakness, Renal failure <Francisca Arias MD - Last Filed: 11/15/24 06:08> Patient Disposition: Home w/ Parent or Adult <Francisca Arias MD - Last Filed: 11/15/24 06:08> Condition: Improved <Francisca Arias MD - Last Filed: 11/15/24 06:08> Activity Level: Activity as Tolerated and Use Walker <Francisca Arias MD - Last Filed: 11/15/24 06:08> Activity as Tolerated and Use Walker <Tulio Laureano MD - Last Filed: 11/13/24 13:38> Discharge Diet: Regular and High Fiber <Francisca Arias MD - Last Filed: 11/15/24 06:08> Regular and High Fiber <Tulio Laureano MD - Last Filed: 11/13/24 13:38>
[2024-11-13] MEDS: ONDANSETRON 2 MG/ML inj 4 MG IVP (07:07)
[2024-11-13] MEDS: 0.9 % SODIUM CHLORIDE 500 ML 500 ML IV (07:07)
[2024-11-13 07:09] LABS: Lactate Sepsis w/Reflex* 0.9 mmol/L (0.5-1.9)
[2024-11-13 07:15] LABS: Basophils Percent Auto 0.3 % (0.0-3.0); Eosinophils Percent Auto 0.3 % (0.0-7.0); Hematocrit 28.1 % (33.0-51.0); Hemoglobin* 9.2 gm/dL (12.0-16.0); Immature Granulocytes Pct Auto 0.1 %; Lymphocytes Percent Auto 9.1 % (20-44); Mean Corpuscular HGB Conc 33 gm/dL (32-36); Mean Corpuscular Hemoglobin 29 pg (26-34); Mean Corpuscular Volume 88 fL (80-100); Monocytes Percent Auto 6.2 % (0.0-11.0); Platelet Count* 260 K/uL (140-440); RDW Coefficient of Variation % 18.1 % (11.5-15.5); Red Blood Count 3.21 m/uL (4.00-5.20)
[2024-11-13 07:16] LABS: Slide Review Reflex No
[2024-11-13 07:24] LABS: Albumin* 4.1 g/dL (3.3-5.0); Chloride* 107 mmol/L (96-114); Sodium* 140 mmol/L (135-149)
[2024-11-13 07:25] LABS: Potassium* 3.3 mmol/L (3.6-5.1)
[2024-11-13 07:26] LABS: Creatinine* 4.3 mg/dL (0.5-1.5); Est. Creatinine Clearance* 7.37; Estimated Glomerular Filt Rate 10 ml/min
[2024-11-13 07:27] LABS: Alkaline Phosphatase* 77 U/L (40-150); Anion Gap 12 mEq/L (7-15); Aspartate Amino Transferase* 32 U/L (12-35); Bilirubin Total* 0.9 mg/dL (0.1-1.5); Carbon Dioxide* 21 mmol/L (20-32); Lipase* 159 U/L (23-300); Total Protein* 7.4 g/dL (6.0-8.3)
[2024-11-13 07:28] LABS: Alanine Aminotransferase* 17 U/L (4-35); Blood Urea Nitrogen* 37 mg/dL (7-30); Calcium* 10.2 mg/dL (8.4-10.6); Glucose* 126 mg/dL (60-115)
[2024-11-13 07:34] LABS: C Reactive Protein* < 0.5 mg/dL (0.5-1.0)
[2024-11-13] MEDS: SENNOSIDES 1 TAB TABLET 2 TAB PO (08:22)
[2024-11-13] MEDS: polyethylene glycoL 3350 17 GM PACK PO (08:22)
[2024-11-13] MEDS: DOC/MIN OIL/MAG CIT/SOD PHOS 376 ML ENEMA PR (09:05)
--- NOTE | 2024-11-13 09:27 | ED.NURSE ---
Attempted to administer enema. Contents were immediately expelled. Stopped enema and manually disimpacted a moderate amount of formed, hard, stool. Attempted to administer remaining amount of enema without success. Pt tolerated poorly. Pt flat and not engaging in care. Encouraged patient to sit on commode to which pt replied I'll go at home. With second prompt, pt did get up to commode and immediately stated I want to lay down. Encouraged pt to try to sit and pass more stool. After five minutes of sitting on the commode, pt passed a golf ball sized stool ball. Assisted back into bed where pt promptly went back to sleep. updated and aware.
[2024-11-13 11:33] VITALS: BP 124/60; PULSE 90; RESP 16; TEMP 37.1; O2SAT 90
[2024-11-13 11:49] LABS: Magnesium* 3.6 mg/dL (1.5-2.6)
--- NOTE | 2024-11-13 12:32 | CRLHL7_ITS ---
For Patients: As a result of the Century Cures Act, medical imaging exams and procedure reports are released immediately into your electronic medical record. You may view this report before your referring provider. If you have questions, please contact your health care provider. INDICATION: Hypoxia. TECHNIQUE: Chest radiographs, 2 views. COMPARISON: None. FINDINGS: Cardiovascular/Mediastinum: Normal heart size. Unremarkable. Lungs: No focal consolidation. Linear band like opacification of the lungs bilaterally, likely subsegmental atelectasis and/or scarring. Airways: Trachea remains midline. Pleura: No pleural effusions or pneumothorax. Bones: No acute osseous abnormalities. Upper abdomen: Unremarkable. IMPRESSION: No acute cardiopulmonary process. Dictated by Wes Christine MD @ 11/13/2024 1:25:32 PM (Electronically Signed)
[2024-11-13 12:46] LABS: Bilirubin Urine Negative (Negative); Blood Urine 2+ (Negative); Color Urine Yellow (Yellow); Glucose Urine Trace (Negative); Ketones Urine 1+ (Negative); Leukocyte Esterase Urine Trace (Negative); Nitrite Urine Negative (Negative); Protein Urine 2+ (Negative); Urobilinogen Urine 0.2 (0.2-1.0)
[2024-11-13 12:57] LABS: Appearance Urine Slightly Cloudy (Clear); Bacteria Urine Many; Squamous Epithelial Cell Urine Few (None-Few)
[2024-11-13] MEDS: LACTATED RINGERS 500 ML 500 ML IV (13:08)
[2024-11-13] MEDS: bisacodyL 10 MG SUPP.RECT PR (13:12)
--- NOTE | 2024-11-13 13:57 | CRLHL7_ITS ---
For Patients: As a result of the Century Cures Act, medical imaging exams and procedure reports are released immediately into your electronic medical record. You may view this report before your referring provider. If you have questions, please contact your health care provider. Indication Vomiting. Altered mental status. TECHNIQUE: Noncontrast CT images of the brain. COMPARISON: None. FINDINGS: Mild diffuse cerebral volume loss. No mass effect or midline shift. Gonsales-white differentiation is maintained. No acute intracranial hemorrhage or pathologic extra-axial fluid collection. Suggested moderate chronic microvascular ischemic changes. Intracranial atherosclerotic calcifications. Thinning of the ocular lenses. Calvarium is intact. The visualized paranasal sinuses and mastoid air cells are clear. IMPRESSION: No acute intracranial hemorrhage or mass effect. Please note that all CT scans at this facility use dose modulation, iterative reconstruction, and/or weight-based dosing when appropriate to reduce radiation dose to as low as reasonably achievable. Dictated by Yinka Xiong MD @ 11/13/2024 2:48:28 PM (Electronically Signed)
--- NOTE | 2024-11-13 13:58 | CRLHL7_ITS ---
For Patients: As a result of the Century Cures Act, medical imaging exams and procedure reports are released immediately into your electronic medical record. You may view this report before your referring provider. If you have questions, please contact your health care provider. INDICATION: Abdominal pain. Vomiting. FINDINGS: There are multiple stones and sludge in the gallbladder. The gallbladder wall is not thick measuring 2 mm. There is no pericholecystic fluid. The common bile duct was not successfully visualized. The liver parenchyma appears normal throughout. There is normal blood flow within the portal vein with spectral Doppler imaging. The head and body of the pancreas appear normal. The tail was not well seen. To the right of the inferior vena cava, there is a circumscribed echogenic lesion measuring 2.2 x 1.[address] is recommended for further characterization. The right kidney is not optimally visualized but appears normal and measures 8.5 x 3.9 x 4.1 cm. Renal cortical thickness measures 1.2 cm. The abdominal aorta is not optimally visualized but does not appear dilated. The inferior vena cava appears normal. IMPRESSION: 1. Multiple small stones and sludge within the gallbladder. 2. Nonvisualization of the common bile duct. 3. There is a echogenic lesion to the right of the inferior vena cava. CT is recommended for further characterization. Dictated by Minh Jiménez MD @ 11/13/2024 7:17:17 PM (Electronically Signed)
[2024-11-13] MEDS: LACTATED RINGERS 1000 ML 1,000 ML 75 ML IV (14:53)
[2024-11-13 15:00] VITALS: BP 137/58; PULSE 80; RESP 16; TEMP 36.6; O2SAT 90
--- NOTE | 2024-11-13 16:46 | PM.IMHP1 ---
Hospitalist- H&P: MIKE History of Present Illness Date Seen: 11/13/24 Chief complaint: vomiting/constipated kidney failure Narrative: 79-year-old female presents to the ED with son. She has a notable history of recent kidney failure, sounds like it was idiopathic but kidney function is not fully recovering. She was hospitalized at [facility] in [facility] for a couple weeks in early October. It looks like she was just seen 2 weeks ago. Her creatinine had improved from 9-5 but her kidney function is still quite abnormal. It sounds like she has lost 12 lb in the last couple of months as well. She has been constipated for the past 8 days, had a very small bowel movement 3 days ago, not significant. She took 2 Dulcolax stool softeners last night with no improvement in symptoms which is not unexpected. She is uncertain what would be safe for her in the setting of her kidney disease. She was generally feeling well yesterday until shortly after midnight last night when she began to have vomiting. She only had 3 emesis which were nonbloody but she was up much the night and felt poorly and very weak. Her sons are concerned she is not strong enough to even walk to the bathroom. She continues to have abdominal pain. She is not aware of any fever or shortness of breath. Reports that she has had prior colonoscopies before that were normal. No prior abdominal surgeries of any kind, no history of bowel obstructions. She does not take any anticoagulants. There has been no abdominal trauma. No dysuria, nephrology notes reflect an MRI of the kidneys performed within the last couple of months that was nonrevealing. The etiology of her kidney failure is unknown. Patient does report achy pain and she points the pelvis but the torso to the left lower quadrant for me. She denies a prior history of diverticulitis. She is not running fevers and also denies body aches and chills but does endorse weakness. Denies prior similar episodes but states that she is prone to constipation. Past medical history is most notable for hypertension in the recent kidney failure. She also has hyperlipidemia an overactive bladder. Allergy to penicillin which causes hives. ROS is notable for the weakness, abdominal symptoms as stated above, otherwise denies times 12 systems but some of them do seem a bit positive to me on initial general inspection. Review of Systems Narrative: Patient reports no other concerns except for the symptoms that are described above starting after midnight. She ate normal meals without symptoms yesterday [facility] Medical History (Updated 11/13/24 @ 17:09 by Avinash Castillo MD) Weakness ?R53.1 - Weakness (ICD-10) Squamous cell carcinoma Actinic keratosis ?L57.0 - Actinic keratosis (ICD-10) Basal cell carcinoma (BCC) ?C44.91 - Basal cell carcinoma of skin, unspecified (ICD-10) Gastroesophageal reflux disease ?K21.9 - Gastro-esophageal reflux disease without esophagitis (ICD-10) Macular degeneration ?H35.30 - Unspecified macular degeneration (ICD-10) Hypertension ?I10 - Essential (primary) hypertension (ICD-10) Hypercholesteremia ?E78.00 - Pure hypercholesterolemia, unspecified (ICD-10) Shoulder pain ?M25.519 - Pain in unspecified shoulder (ICD-10) Left shoulder pain ?M25.512 - Pain in left shoulder (ICD-10) B12 deficiency ?E53.8 - Deficiency of other specified B group vitamins (ICD-10) Restless legs syndrome ?G25.81 - Restless legs syndrome (ICD-10) Constipation by delayed colonic transit ?K59.01 - Slow transit constipation (ICD-10) Back pain ?M54.9 - Dorsalgia, unspecified (ICD-10) Urge incontinence ?N39.41 - Urge incontinence (ICD-10) Hypothyroid ?E03.9 - Hypothyroidism, unspecified (ICD-10) Urinary urgency ?R39.15 - Urgency of urination (ICD-10) Fatigue ?R53.83 - Other fatigue (ICD-10) Surgical History H/O excision of ganglion cyst (05/18/24) ?Z98.890 - Other specified postprocedural states (ICD-10) H/O pelvic surgery ?Z98.890 - Other specified postprocedural states (ICD-10) History of third molar tooth extraction ?K08.409 - Partial loss of teeth, unspecified cause, unspecified class (ICD-10) History of section ?Z98.891 - History of uterine scar from previous surgery (ICD-10) Family History Mother Alcohol abuse Liver cancer Lung cancer Brother Alcohol abuse Father Aspiration pneumonitis Hip fracture Major depression Social History (Updated 11/13/24 @ 16:57 by Avinash Castillo MD) Narrative: She lives in [place] in the wintertime. She was brought to [place] by her 2 sons, Manohar and Luther who live in [place], after her hospitalization in [place]. Her sons are healthcare power of parts delivery driver. Code status is full. She is a former smoker having quit around age 48. She tells me she drinks 1 alcoholic beverage per week but medical records from [facility] indicate 6 drinks per week. What is your current living situation?: I presently have a place to live Problems where you live: no known problems Problems where you live details: none known In the past 12 months, utilities in danger of being shut off: no In past 12 months, lack of transportation kept you from medical appts, meetings, work, or getting things needed for daily living: no In the past 12 mos, have been you worried that your food would run out before you had money to buy more?: never true In the past 12 mos, the food you bought just didn't last and you didn't have money to buy more?: never true Smoking Status: Former smoker Do you use any of these nicotine containing products: None Second hand tobacco smoke exposure: No How often do you have a drink containing alcohol: monthly or less How many standard drinks containing alcohol do you have on a typical day: 3 or 4 How often do you have six or more drinks on one occasion: Never AUDIT-C Alcohol total score: 2 Non-prescribed substance use: denies use Caffeine: Yes How often does anyone, including family, friends and others, physically hurt you: never How often does anyone, including family, friends and others, insult or talk down to you: never How often does anyone, including family, friends and others, threaten you with harm: never How often does anyone, including family, friends and others, scream or curse at you: never Are you using contraception or practicing any form of control: No Meds Home Medications and Allergies Home Medications ?Medication ?Instructions ?Recorded ?Confirmed ?Type calcium 500 mg (as 2 tab PO DAILY 05/19/22 11/13/24 History carbonate)-vitamin D3 10 mcg (400 unit) tablet hydroxocobalamin 1,000 mcg/mL 1,000 mcg IM MONTHLY 05/19/22 11/13/24 History intramuscular solution amlodipine 5 mg tablet 5 mg PO BID 11/13/24 11/13/24 History ergocalciferol (vitamin D2) 1,250 1,250 mcg PO Q7D 11/13/24 11/13/24 History mcg (50,000 unit) capsule gabapentin 100 mg capsule 100 mg PO HS 11/13/24 11/13/24 History omeprazole 20 mg capsule,delayed 20 mg PO DAILY PRN 11/13/24 11/13/24 History release sodium bicarbonate 650 mg tablet 650 mg PO BID 11/13/24 11/13/24 History Allergies Allergy/AdvReac Type Severity Reaction Status Date / Time Penicillins Allergy Intermediate Hives Verified 11/13/24 06:48 insect venom AdvReac Verified 09/01/24 09:15 Exam Narrative: Exam Narrative: She is quite sleepy and hard to arouse. When she does arouse she falls back to sleep quite quickly. She gives minimal answers to questions. She is oriented to being in the hospital but is unable to tell me much detail of what has happened in the last day. History is primarily obtained from her sons. Head is without obvious trauma. Eyes are normal. No facial asymmetry. Oropharynx is normal except for very dry mucous membranes. Neck is supple without mass or adenopathy. Respirations are clear to auscultation. Cardiovascular: S1, S2, regular rate and rhythm. Abdomen: Bowel sounds are present. Abdomen with diffuse tenderness and diffuse guarding. No peritonitis. No obvious mass. External genitalia normal. Extremities without edema. She moves all 4 extremities well. Const: Vital Signs, click to edit/add: Vital Signs - 24 hr 11/13/24 06:46 11/13/24 11:33 11/13/24 11:33 Temperature 98.0 F 98.8 F Pulse Rate [Pulse Oximeter] 82 90 Respiratory Rate 16 16 Blood Pressure [Le ft Upper Arm] 134/61 Blood Pressure [Ri ght Arm] 124/60 Pulse Oximetry 98 90 90 Oxygen Delivery Me thod Room Air Room Air Room Air 11/13/24 15:00 Temperature 97.8 F Pulse Rate [Pulse Oximeter] 80 Respiratory Rate 16 Blood Pressure [Le ft Upper Arm] Blood Pressure [Ri ght Arm] 137/58 L Pulse Oximetry 90 Oxygen Delivery Me thod Room Air Documenting provider has reviewed patient's vital signs: yes Hospitalist - H&P: Result Labs Labs: Short CBC 11/13/24 Range/Units 07:05 WBC 14.30 H (4.50-11.00) K/uL Hgb 9.2 L (12.0-16.0) gm/dL Hct 28.1 L (33.0-51.0) % Plt Count 260 (140-440) K/uL BMP 11/13/24 07:05 Sodium 140 Potassium 3.3 L Chloride 107 Carbon Dioxide 21 BUN 37 H Creatinine 4.3 H Glucose 126 H Calcium 10.2 Liver Function 11/13/24 Range/Units 07:05 Total Bilirubin 0.9 (0.1-1.5) mg/dL AST 32 (12-35) U/L ALT 17 (4-35) U/L Alkaline Phosphatase 77 (40-150) U/L Albumin 4.1 (3.3-5.0) g/dL Urine 11/13/24 Range/Units 12:40 Urine Color Yellow (Yellow) Urine Appearance Slightly Cloudy A (Clear) Urine pH 7.0 (5.0-8.5) Ur Specific [place] 1.020 (1.000-1.030) Urine Protein 2+ A (Negative) Urine Glucose (UA) Trace A (Negative) Imaging CT scan - abdomen: Radiologist's impression: INDICATION: Left lower quadrant pain. History of kidney disease. TECHNIQUE: CT abdomen and pelvis without contrast. COMPARISON: None FINDINGS: Lower chest: Large calcified granuloma lateral left lower lobe. Moderately large sliding-type hiatus hernia. Liver: Unremarkable. Spleen: Numerous punctate calcified granulomas. Pancreas: Unremarkable. Gallbladder and bile ducts: Layering stones within an upper normal-sized gallbladder. No wall thickening or inflammation appreciated. Kidneys: Small nonobstructing calculi upper pole of each kidney. Vascular calcifications in the eugenio. No hydronephrosis. No obvious mass or cyst. No ureteral dilatation or filling defects. Upper normal physiologic distention of urinary bladder without wall thickening or diverticula. Adrenal glands: Unremarkable. GI tract: Massive amount of dense formed stool. Redundant colon. No obvious wall thickening or inflammation. No dilatation of small bowel. Appendix is not identified. No pericecal inflammation. Vascular structures: Moderate atherosclerosis calcifications diffusely. Lymph nodes: Unremarkable. Miscellaneous: Unremarkable. No free air or significant free fluid. Pelvic Organs: Small punctate calcification right uterine fundus likely small fibroid. Bones: Unremarkable for age. IMPRESSION: Small nonobstructing upper pole caliceal calculi bilaterally. Prominent acute on chronic constipation. Cholelithiasis. Moderate-sized hiatus hernia. Splenic and left lung base granulomas. Chest x-ray: Radiologist's impression: INDICATION: Hypoxia. TECHNIQUE: Chest radiographs, 2 views. COMPARISON: None. FINDINGS: Cardiovascular/Mediastinum: Normal heart size. Unremarkable. Lungs: No focal consolidation. Linear band like opacification of the lungs bilaterally, likely subsegmental atelectasis and/or scarring. Airways: Trachea remains midline. Pleura: No pleural effusions or pneumothorax. Bones: No acute osseous abnormalities. Upper abdomen: Unremarkable. IMPRESSION: No acute cardiopulmonary process. CT scan - head: Radiologist's impression: Indication Vomiting. Altered mental status. TECHNIQUE: Noncontrast CT images of the brain. COMPARISON: None. FINDINGS: Mild diffuse cerebral volume loss. No mass effect or midline shift. Gonsales-white differentiation is maintained. No acute intracranial hemorrhage or pathologic extra-axial fluid collection. Suggested moderate chronic microvascular ischemic changes. Intracranial atherosclerotic calcifications. Thinning of the ocular lenses. Calvarium is intact. The visualized paranasal sinuses and mastoid air cells are clear. IMPRESSION: No acute intracranial hemorrhage or mass effect. Assessment and Plan Assessment and plan (1) Metabolic encephalopathy: Problem comment: Patient has marked altered mental status today likely due to acute illness. Does not appear to be a primary neurologic problem. Continue investigation for illness Status: Acute (2) Abdominal pain: Problem comment: Abdominal pain and vomiting appear to be the primary features of her acute illness. CT scan is reassuring. Obtain ultrasound, urine studies and close follow-up Status: Acute (3) Vomiting: Status: Acute (4) Renal failure: Problem comment: Hospitalized in [place] 1 month ago with a creatinine of 9. Has improved to 4.3 without dialysis. Continue to monitor and evaluate renal function, fluids and electrolytes Status: Acute (5) Generalized weakness: Problem comment: This is likely mostly acute onset today with her acute illness. PT and OT to assess. Expect improvement as her acute illness improves Status: Acute (6) Chronic constipation: Problem comment: Will address this with laxatives though this does not appear to be the primary cause of her acute illness Status: Acute Plan Patient is admitted to the hospital for evaluation management of her encephalopathy and her abdominal symptoms. The cause for her illness is not apparent at this time. Further evaluation and testing is pending. Total time spent today is 80 minutes in reviewing past records, discussion with patient and her 2 sons and other providers her current health status and ongoing plan for evaluation and management.
[2024-11-13 18:27] LABS: PCR FLU A Negative PCR FLU A (Negative); PCR FLU B Negative PCR FLU B (Negative); PCR RSV Negative PCR RSV (Negative); SARS PCR* Negative SARS-CoV-2 (Negative)
--- NOTE | 2024-11-13 19:38 | W.PM.CROSSCO ---
Subjective Subjective Date Seen: 11/13/24 Interval history: I was asked to f/u on head CT and RUQ US results (below). I spoke with the patient and her sons about the results. I also called and spoke with the radiologist who read the scan to discuss the finding of an echogenic lesion to the right of the IVC.CT scan was recommended for further characterization, however the patient had already had a CT scan that day. The radiologist correlated with the CT findings and noted that there was no abnormal finding in that area of the CT. I went back to the patient's room and discussed the results with her and her sons. Ordering Physician: Avinash Castillo M.D. Date of Service: 11/13/24 Procedure(s): CT head/brain wo con Accession Number(s): [id number] cc: Chuckie Peters M.D.; Avinash Castillo M.D.~ For Patients: As a result of the Cures Act, medical imaging exams and procedure reports are released immediately into your electronic medical record. You may view this report before your referring provider. If you have questions, please contact your health care provider. Indication Vomiting. Altered mental status. TECHNIQUE: Noncontrast CT images of the brain. COMPARISON: None. FINDINGS: Mild diffuse cerebral volume loss. No mass effect or midline shift. Gonsales-white differentiation is maintained. No acute intracranial hemorrhage or pathologic extra-axial fluid collection. Suggested moderate chronic microvascular ischemic changes. Intracranial atherosclerotic calcifications. Thinning of the ocular lenses. Calvarium is intact. The visualized paranasal sinuses and mastoid air cells are clear. IMPRESSION: No acute intracranial hemorrhage or mass effect. Please note that all CT scans at this facility use dose modulation, iterative reconstruction, and/or weight-based dosing when appropriate to reduce radiation dose to as low as reasonably achievable. Dictated by Yinka Xiong MD @ 11/13/2024 2:48:28 PM (Electronically Signed) Ordering Physician: Avinash Castillo M.D. Date of Service: 11/13/24 Procedure(s): US abdomen limited Accession Number(s): [id number] cc: Chuckie Peters M.D.; vAinash Castillo M.D.~ For Patients: As a result of the Cures Act, medical imaging exams and procedure reports are released immediately into your electronic medical record. You may view this report before your referring provider. If you have questions, please contact your health care provider. INDICATION: Abdominal pain. Vomiting. FINDINGS: There are multiple stones and sludge in the gallbladder. The gallbladder wall is not thick measuring 2 mm. There is no pericholecystic fluid. The common bile duct was not successfully visualized. The liver parenchyma appears normal throughout. There is normal blood flow within the portal vein with spectral Doppler imaging. The head and body of the pancreas appear normal. The tail was not well seen. To the right of the inferior vena cava, there is a circumscribed echogenic lesion measuring 2.2 x 1.[address] is recommended for further characterization. The right kidney is not optimally visualized but appears normal and measures 8.5 x 3.9 x 4.1 cm. Renal cortical thickness measures 1.2 cm. The abdominal aorta is not optimally visualized but does not appear dilated. The inferior vena cava appears normal. IMPRESSION: 1. Multiple small stones and sludge within the gallbladder. 2. Nonvisualization of the common bile duct. 3. There is a echogenic lesion to the right of the inferior vena cava. CT is recommended for further characterization. Dictated by Minh Jiménez MD @ 11/13/2024 7:17:17 PM (Electronically Signed)
--- NOTE | 2024-11-13 19:49 | PC.NURSE ---
End of shift: The patient is alert to self and month and year. Noted confusion regarding time of day this afternoon. The patient was voiding throughout the shift, although would miss the hat. Bladder scanned for 490... the patient voided 300 and re bladder scannd for 496.. straight cath was inserted per Dr order. 600cc was obtained from insertion. Reports generalized abdominal pain with palpitation. No nausea since arriving to the unit. IV fluids infusing, clear liquid diet. The patient has had a few episodes of ball sized hard formed stool this shift. Call light in reach and alarm on. Kim HAMILTON BSN
[2024-11-13] MEDS: GABAPENTIN 100 MG CAPSULE PO (21:03)
[2024-11-13] MEDS: SENNOSIDES/DOCUSATE TABLET 2 TAB PO (21:03)
[2024-11-13] MEDS: SODIUM BICARBONATE 650 MG TABLET PO (21:04)
[2024-11-13 21:30] VITALS: BP 121/52; PULSE 74; RESP 16; TEMP 36.9; O2SAT 90
[2024-11-14 00:50] VITALS: BP 98/40; PULSE 86; RESP 16; TEMP 36.9; O2SAT 90
[2024-11-14] MEDS: OMEPRAZOLE 20 MG CAPSULE DR PO (06:14)
[2024-11-14] MEDS: LEVOTHYROXINE 50 MCG TABLET PO (06:14)
[2024-11-14] MEDS: LACTATED RINGERS 1000 ML 1,000 ML 75 ML IV (06:14)
[2024-11-14 06:25] VITALS: BP 106/42; PULSE 86; RESP 18; TEMP 36.8; O2SAT 91
[2024-11-14 06:35] LABS: Basophils Percent Auto 0.4 % (0.0-3.0); Eosinophils Percent Auto 1.8 % (0.0-7.0); Hematocrit 26.3 % (33.0-51.0); Hemoglobin* 8.4 gm/dL (12.0-16.0); Immature Granulocytes Pct Auto 0.1 %; Lymphocytes Percent Auto 20.1 % (20-44); Mean Corpuscular HGB Conc 32 gm/dL (32-36); Mean Corpuscular Hemoglobin 28 pg (26-34); Mean Corpuscular Volume 89 fL (80-100); Monocytes Percent Auto 7.6 % (0.0-11.0); Platelet Count* 232 K/uL (140-440); RDW Coefficient of Variation % 18.6 % (11.5-15.5); Red Blood Count 2.96 m/uL (4.00-5.20); White Blood Count* 13.39 K/uL (4.50-11.00)
[2024-11-14 06:39] LABS: Slide Review Reflex No
[2024-11-14 06:56] LABS: Albumin* 3.4 g/dL (3.3-5.0); Chloride* 108 mmol/L (96-114); Potassium* 3.2 mmol/L (3.6-5.1); Sodium* 139 mmol/L (135-149)
[2024-11-14 06:58] LABS: Creatinine* 4.1 mg/dL (0.5-1.5); Est. Creatinine Clearance* 7.73; Estimated Glomerular Filt Rate 10 ml/min
[2024-11-14 06:59] LABS: Alkaline Phosphatase* 69 U/L (40-150); Anion Gap 8 mEq/L (7-15); Aspartate Amino Transferase* 25 U/L (12-35); Bilirubin Direct* 0.4 mg/dL (0.0-0.5); Bilirubin Total* 0.6 mg/dL (0.1-1.5); Carbon Dioxide* 23 mmol/L (20-32); Total Protein* 6.5 g/dL (6.0-8.3)
[2024-11-14 07:00] LABS: Alanine Aminotransferase* 16 U/L (4-35); Blood Urea Nitrogen* 33 mg/dL (7-30); Calcium* 9.1 mg/dL (8.4-10.6); Glucose* 95 mg/dL (60-115); Magnesium* 2.8 mg/dL (1.5-2.6)
[2024-11-14 07:02] LABS: C Reactive Protein* 3.1 mg/dL (0.5-1.0)
[2024-11-14 07:08] LABS: Troponin I* 0.04 ng/mL (0.01-0.04)
[2024-11-14 07:27] LABS: Thyroid Stimulating Hormone* 0.331 uIU/mL (0.270-4.20)
--- NOTE | 2024-11-14 07:33 | PC.NURSE ---
End of shift [id number] - Pt alert and cooperative. Demonstrated recent memory impairment at start of shift and increased fatigue. Memory impairment and fatigue resolved with sleep. Pt up with standby assistance, reported headache as 2/10 with symptoms resolving spontaneously. Pt continent of bladder during shift, no BM noted. Bladder scan for post residual volume per MD order. Volume documented no straight catheterization needed during shift per MD order parameters. Tolerating RA and clear liquid diet. Family at bedside during shift. Pt appears to be resting comfortably at end of shift with call light within reach.
[2024-11-14 07:41] VITALS: BP 128/55; PULSE 83; RESP 12; TEMP 36.9; O2SAT 92
[2024-11-14] MEDS: ACETAMINOPHEN 325 MG TABLET 650 MG PO (08:01)
[2024-11-14] MEDS: SENNOSIDES/DOCUSATE TABLET 2 TAB PO (08:02)
[2024-11-14] MEDS: SODIUM BICARBONATE 650 MG TABLET PO (08:02)
[2024-11-14] MEDS: ROSUVASTATIN CALCIUM 10 MG TABLET 20 MG PO (08:02)
[2024-11-14] MEDS: POTASSIUM BICARB 25 MEQ EFFERVESCENT TAB PO (08:06)
[2024-11-14 09:33] VITALS: BMI 25.4
[2024-11-14 10:48] VITALS: BP 104/47; PULSE 71; RESP 14; TEMP 36.8; O2SAT 95
[2024-11-14] MEDS: polyethylene glycoL 3350 17 GM PACK PO (10:59)
--- NOTE | 2024-11-14 13:05 | P.DS_ITS ---
DS: Providers Provider Date Seen: 11/14/24 Date of admission: 11/13/24 13:59 Primary care physician: Chuckie Peters MD Admitting Clinician: Aivnash Castillo MD Attending Physician on discharge: Avinash Castillo MD Date of Discharge: 11/14/24 DS: Diagnosis Discharge Diagnosis (1) Metabolic encephalopathy: Status: Acute Problem details: On admission she had marked altered mental status with difficulty with arousal. Difficulty answering questions. Suspected to be metabolic encephalopathy secondary to acute illness. Resolved by discharge (2) Abdominal pain: Status: Acute Problem details: Abdominal pain and vomiting appear to be the primary features of her acute illness. CT scan is reassuring. Ultrasound showed gallstones without other findings of cholecystitis. She has had no right upper quadrant tenderness today and normal LFTs today. If recurrent abdominal symptoms consider further evaluation for biliary disease. (3) Vomiting: Status: Acute Problem details: Resolved. Eating normally today (4) Renal failure: Status: Acute Problem details: Hospitalized in [place] 1 month ago with a creatinine of 9. Creatinine 4.3 on admission and 4.1 on discharge. Potassium was low at 3.3 on admission (5) Generalized weakness: Status: Acute Problem details: This is likely mostly acute onset today with her acute illness. PT assessment is that she should use a 4 wheeled walker. Patient is reluctant to consider this option. Outpatient PT (6) Chronic constipation: Status: Acute Problem details: Chronic problem. Manual disimpaction in the emergency department. Subsequently had suppositories and oral laxatives with some results. Outpatient scheduled senna and MiraLax as needed (7) Cognitive impairment: Status: Acute Problem details: Elmer 1730 on 11/14/2024. Recommend outpatient follow-up evaluation in 6 months or as needed. (8) Cholelithiasis: Status: Acute Problem details: Ultrasound shows cholelithiasis but history physical and labs do not suggest cholecystitis. Re-evaluate if recurrent abdominal symptoms DS: Summary Hospital Course Hospital Course: 79-year-old female presents to the ED with son. She has a notable history of recent kidney failure, sounds like it was idiopathic but kidney function is not fully recovering. She was hospitalized at [facility] in [facility] for a couple weeks in early October. It looks like she was just seen 2 weeks ago. Her creatinine had improved from 9-5 but her kidney function is still quite abnormal. It sounds like she has lost 12 lb in the last couple of months as well. She has been constipated for the past 8 days, had a very small bowel movement 3 days ago, not significant. She took 2 Dulcolax stool softeners last night with no improvement in symptoms which is not unexpected. She is uncertain what would be safe for her in the setting of her kidney disease. She was generally feeling well yesterday until shortly after midnight last night when she began to have vomiting. She only had 3 emesis which were nonbloody but she was up much the night and felt poorly and very weak. Her sons are concerned she is not strong enough to even walk to the bathroom. She continues to have abdominal pain. She is not aware of any fever or shortness of breath. Reports that she has had prior colonoscopies before that were normal. No prior abdominal surgeries of any kind, no history of bowel obstructions. She does not take any anticoagulants. There has been no abdominal trauma. No dysuria, nephrology notes reflect an MRI of the kidneys performed within the last couple of months that was nonrevealing. The etiology of her kidney failure is unknown. Patient does report achy pain and she points the pelvis but the torso to the left lower quadrant for me. She denies a prior history of diverticulitis. She is not running fevers and also denies body aches and chills but does endorse weakness. Denies prior similar episodes but states that she is prone to constipation. Past medical history is most notable for hypertension in the recent kidney failure. She also has hyperlipidemia an overactive bladder. Allergy to penicillin which causes hives. ROS is notable for the weakness, abdominal symptoms as stated above, otherwise denies times 12 systems but some of them do seem a bit positive to me on initial general inspection. 11/14/2024: Overnight patient felt much better. Mental status is back to baseline. She is alert and talking. Therapy recommends a 4 wheeled walker for her though she is reluctant to pursue this. Elmer score was 17/30 this morning. She is very anxious to go home. Status at Discharge Functional status at discharge: uses cane/walker Overall status at discharge: patient is back to baseline Time Spent with Patient Time attestation: Total time spent providing and/or coordinating discharge services: 40 minutes Time spent: Greater than 30 minutes Exam Narrative: Exam Narrative: She is alert and appears in no distress. She is oriented to her circumstances. Breathing is unlabored. Cardiovascular: S1, S2, regular rate and rhythm. Abdomen: Bowel sounds are present. Abdomen is soft with mild left flank and left lower quadrant tenderness. No right-sided or epigastric tenderness. No mass no peritonitis. Extremities without edema Const: Vital Signs, click to edit/add: Vital Signs - 24 hr 11/13/24 15:00 11/13/24 21:30 11/14/24 00:50 Temperature 97.8 F 98.5 F 98.4 F Pulse Rate [Pulse Oximeter] 80 74 86 Respiratory Rate 16 16 16 Blood Pressure [Ri ght Arm] 137/58 L 121/52 L 98/40 L Pulse Oximetry 90 90 90 Oxygen Delivery Me thod Room Air Room Air Room Air 11/14/24 06:25 11/14/24 07:41 11/14/24 07:41 Temperature 98.3 F 98.4 F Pulse Rate [Pulse Oximeter] 86 83 83 Respiratory Rate 18 12 12 Blood Pressure [Ri ght Arm] 106/42 L 128/55 L Pulse Oximetry 91 92 Oxygen Delivery Me thod Room Air Room Air 11/14/24 10:48 Temperature 98.3 F Pulse Rate [Pulse Oximeter] 71 Respiratory Rate 14 Blood Pressure [Ri ght Arm] 104/47 L Pulse Oximetry 95 Oxygen Delivery Me thod Room Air Documenting provider has reviewed patient's vital signs: yes DS: Data Data Completed and Pending Labs on day of discharge: Labs from last 24 hours 11/14/24 11/13/24 06:13 17:21 WBC 13.39 H RBC 2.96 L Hgb 8.4 L Hct 26.3 L MCV 89 MCH 28 MCHC 32 RDW Coeff of Melinda 18.6 H Plt Count 232 Neut % (Auto) 70.0 Lymph % (Auto) 20.1 [place] % (Auto) 7.6 Eos % (Auto) 1.8 Baso % (Auto) 0.4 Neut # (Auto) 9.40 H Lymph # (Auto) 2.70 [place] # (Auto) 1.00 H Eos # (Auto) 0.20 Baso # (Auto) 0.10 Abs Immat Gran (auto) 0.00 Imm/Tot Granulo (auto) 0.1 Sodium 139 Potassium 3.2 L Chloride 108 Carbon Dioxide 23 Anion Gap 8 BUN 33 H Creatinine 4.1 H Estimated Creat Clear 7.73 Estimated GFR 10 Glucose 95 Calcium 9.1 Phosphorus 3.0 Magnesium 2.8 H Total Bilirubin 0.6 Direct Bilirubin 0.4 AST 25 ALT 16 Alkaline Phosphatase 69 Troponin I 0.04 C-Reactive Protein 3.1 H Total Protein 6.5 Albumin 3.4 TSH 0.331 SARS-CoV-2 (PCR) Negative SARS-CoV-2 Influenza Type A (PCR) Negative PCR FLU A Influenza Type B (PCR) Negative PCR FLU B RSV (PCR) Negative PCR RSV Preliminary micro results at discharge 11/13/24 12:41 Urine Culture - Preliminary Urine,Clean Catch Gram negative jackelyn Imaging US - abdomen: Radiologist's impression: INDICATION: Abdominal pain. Vomiting. FINDINGS: There are multiple stones and sludge in the gallbladder. The gallbladder wall is not thick measuring 2 mm. There is no pericholecystic fluid. The common bile duct was not successfully visualized. The liver parenchyma appears normal throughout. There is normal blood flow within the portal vein with spectral Doppler imaging. The head and body of the pancreas appear normal. The tail was not well seen. To the right of the inferior vena cava, there is a circumscribed echogenic lesion measuring 2.2 x 1.[address] is recommended for further characterization. The right kidney is not optimally visualized but appears normal and measures 8.5 x 3.9 x 4.1 cm. Renal cortical thickness measures 1.2 cm. The abdominal aorta is not optimally visualized but does not appear dilated. The inferior vena cava appears normal. IMPRESSION: 1. Multiple small stones and sludge within the gallbladder. 2. Nonvisualization of the common bile duct. 3. There is a echogenic lesion to the right of the inferior vena cava. CT is recommended for further characterization. CT scan - abdomen: Radiologist's impression: INDICATION: Left lower quadrant pain. History of kidney disease. TECHNIQUE: CT abdomen and pelvis without contrast. COMPARISON: None FINDINGS: Lower chest: Large calcified granuloma lateral left lower lobe. Moderately large sliding-type hiatus hernia. Liver: Unremarkable. Spleen: Numerous punctate calcified granulomas. Pancreas: Unremarkable. Gallbladder and bile ducts: Layering stones within an upper normal-sized gallbladder. No wall thickening or inflammation appreciated. Kidneys: Small nonobstructing calculi upper pole of each kidney. Vascular calcifications in the eugenio. No hydronephrosis. No obvious mass or cyst. No ureteral dilatation or filling defects. Upper normal physiologic distention of urinary bladder without wall thickening or diverticula. Adrenal glands: Unremarkable. GI tract: Massive amount of dense formed stool. Redundant colon. No obvious wall thickening or inflammation. No dilatation of small bowel. Appendix is not identified. No pericecal inflammation. Vascular structures: Moderate atherosclerosis calcifications diffusely. Lymph nodes: Unremarkable. Miscellaneous: Unremarkable. No free air or significant free fluid. Pelvic Organs: Small punctate calcification right uterine fundus likely small fibroid. Bones: Unremarkable for age. IMPRESSION: Small nonobstructing upper pole caliceal calculi bilaterally. Prominent acute on chronic constipation. Cholelithiasis. Moderate-sized hiatus hernia. Splenic and left lung base granulomas. CT scan - head: Radiologist's impression: Indication Vomiting. Altered mental status. TECHNIQUE: Noncontrast CT images of the brain. COMPARISON: None. FINDINGS: Mild diffuse cerebral volume loss. No mass effect or midline shift. Gonsales-white differentiation is maintained. No acute intracranial hemorrhage or pathologic extra-axial fluid collection. Suggested moderate chronic microvascular ischemic changes. Intracranial atherosclerotic calcifications. Thinning of the ocular lenses. Calvarium is intact. The visualized paranasal sinuses and mastoid air cells are clear. IMPRESSION: No acute intracranial hemorrhage or mass effect. Chest x-ray: Radiologist's impression: INDICATION: Hypoxia. TECHNIQUE: Chest radiographs, 2 views. COMPARISON: None. FINDINGS: Cardiovascular/Mediastinum: Normal heart size. Unremarkable. Lungs: No focal consolidation. Linear band like opacification of the lungs bilaterally, likely subsegmental atelectasis and/or scarring. Airways: Trachea remains midline. Pleura: No pleural effusions or pneumothorax. Bones: No acute osseous abnormalities. Upper abdomen: Unremarkable. IMPRESSION: No acute cardiopulmonary process. Discharge Plan Discharge Disposition: Home, Self-Care Date of Admission: 11/13/24 13:59 Primary Care Provider: Chuckie Peters Condition: Improved Anticipated Discharge Date/Time: 11/14/24 12:50 Discharge Medications: New sennosides-docusate sodium [Stool Softener-Laxative] 8.6-50 mg Tablet 2 tab PO BID Qty: 100 0RF Rx Instructions: Take 2 tablets every morning. If no bowel movement during the day take 2 tablets in the evening as well Continued calcium carbonate-vitamin D3 500 mg-10 mcg (400 unit) tablet 2 tab PO DAILY hydroxocobalamin 1,000 mcg/mL solution 1,000 mcg IM MONTHLY levothyroxine 50 mcg tablet 50 mcg PO DAILY Qty: 90 4RF rosuvastatin 20 mg tablet 20 mg PO QDAY Qty: 90 4RF solifenacin 10 mg tablet 10 mg PO DAILY Qty: 90 3RF amlodipine 5 mg tablet 5 mg PO BID ergocalciferol (vitamin D2) 1,250 mcg (50,000 unit) capsule 1,250 mcg PO Q7D sodium bicarbonate 650 mg tablet 650 mg PO BID omeprazole 20 mg capsule,delayed release(DR/EC) 20 mg PO DAILY PRN gabapentin 100 mg capsule 100 mg PO HS Discharge Orders: Discharge Order (Routine); Ordered 11/14/24 Ordered By: Avinash Castillo Patient Education: Constipation (DC) Additional Instructions: If you have recurrent problems with abdominal pain and vomiting you should return to the emergency department. You have constipation which will likely require long-term management with laxatives. I have prescribed senna for this purpose. Take 2 tablets every morning and an additional 2 tablets in the evening if you do not have a bowel movement during the day. If this does not give you good results you can add in MiraLax or suppositories to help your bowels work better. We have prescribed outpatient physical therapy for you. There to help improve safety with mobility to keep you independent Activity Level: Activity as Tolerated and Use Walker Discharge Diet: Regular and High Fiber Follow Up Appointments: Chuckie Peters MD [Primary Care Provider] - 11/18/24 12:45 pm ([facility] for follow-up, and basic metabolic panel check.) Forms: [facility] [employer] Info Instructions
--- NOTE | 2024-11-14 13:50 | NUTR.NU ---
AGUSN with MD consult for nutritional consult. Patient admitted for abdominal pain, vomiting, recent weight loss and Metabolic encephalopathy. She was recently hospitalized in a hospital in [place] for renal failure. RDN attempted to visit with patient multiple times, however she was not available during those attempts. She is now being discharged home with son. AGUSN unable to assess before discharge.
--- NOTE | 2024-11-14 13:57 | PC.NURSE ---
Discharge: Patient pleasant and cooperative, alert and oriented. Patient vitally stable, lungs clear, BS WNL, IV removed, catheter intact. Patient denies pain and is SBA with walker when ambulating. Patient tolerating regular diet and urinating well, bladder scan performed x2, 123ml and 120ml, patient also had 1 BM. Patient signed belongings sheet and discharge form. All questions answered by patients two sons. Patient left the floor by wheelchair to sons home at 1355.
== END 2024-11-14 13:55 | disposition home or self-care (01) | DRG 71 ==
LOC: ED 10:45 → MEDSURG 11:15
PROVIDERS: Family Medicine; Admitting Provider Family Medicine; Emergency Provider Emergency Medicine; PCP Family Medicine; Visit Provider Family Medicine
DX: G93.41 Metabolic encephalopathy (principal); N17.9 Acute kidney failure, unspecified; R10.817 Generalized abdominal tenderness; R11.2 Nausea with vomiting, unspecified; R53.1 Weakness; K59.09 Other constipation; I10 Essential (primary) hypertension; K80.20 Calculus of gallbladder without cholecystitis without obstruction; G31.84 Mild cognitive impairment of uncertain or unknown etiology; K21.9 Gastro-esophageal reflux disease without esophagitis; E03.9 Hypothyroidism, unspecified; E78.00 Pure hypercholesterolemia, unspecified
CPT/HCPCS: 36415; 51702; 51798; 70450; 71045; 74176; 76705; 80048; 80053; 80076; 81001; 81003; 83605; 83690; 83735; 84100; 84443; 84484; 85025; 86140; 87040; 87086; 87186; 87631; 97161; 97165; 97535; 99284; 99285; A9270; J2405; J7030; J7120

== ENCOUNTER 2024-12-08 09:00 | Outpatient (RCR) | payer MEDICARE, OTHER, SELFPAY ==
--- NOTE | 2024-11-16 16:07 | OT.OPGNE2 ---
OT Outpatient General/Neuro Eval OT Outpatient General/Neuro Eval* Start: 11/16/24 14:05 Freq: Status: Active Protocol: Document 11/16/24 14:05 MARYANN (Rec: 11/16/24 16:06 MARYANN [id number]) E-signed By Ashtyn Harris, OTR/L, CLT OT Outpatient Evaluation Details Type Type Eval Complexity Medium Insurance Information Insurance Information Insurance Information Medicare B Outpatient History/Precautions Current Condition Referring Provider Dr. Avinash Castillo (hospitalist) PCP is Chuckie Peters Medical Diagnoses Metabolic Encephalopathy Weakness Kidney Failure Treatment Diagnoses Other signs and symptoms involving cognitive function and awareness, R41.89 Fatigue, R53.83 Date of Onset 11/13/24 Medical/Functional History Medical History Reviewed Yes Prior Level of Function/Mobility Patient has been independent with ADLs, mobility (without a device) and IADLs in home and community prior to 11 day hospitalization in October in [place] and recent hospitalization in on 11/13- 11/14/24. Patient was driving in [place] (car) as well as a golf cart [place] the [place]. She was managing her own medications at baseline. Patient lives alone in mobile home with [place] for the winter (son (Manohar or Luther) flies her down, gets her situated and then flies her back up to [place] in the Spring). Son obtained a FWW and shower bench for patient, but she reports she does not use it. Son later clarified that pharmacy set up meds for patient in weekly pillbox. Patient then administers herself at baseline. No reminder system set in place to ensure patient is taking her taking medications, at time of this EVAL, patient was unable to name what medications she takes (or what they are for). Patient wears glasses and has hx of macular degeneration-unable to tell me when her last eye exam was. Prior Medical History Prior Medical History Med List was copied from last office visit with PCP April 2024-patient unable to tell me her medications calcium carbonate-vitamin D3 500 mg-10 mcg (400 unit) 2 tabs PO DAILY diclofenac sodium 1% ( Arthritis Pain (diclofenac)) 2 grams topical QID PRN gabapentin 200 mg PO QHS hydroxocobalamin 1,000 mcg IM MONTHLY levothyroxine 50 mcg PO DAILY omeprazole 20 mg PO DAILY rosuvastatin 20 mg PO QDAY solifenacin 10 mg PO DAILY triamcinolone acetonide 0.1% 1 applic topical BID PRN [id number]-min [id number] unit-mg-mg- unit ER (ICaps) 1 tab PO QDAY Precautions General Precautions LOW VISION: Patient wears glasses and has hx of macular degeneration-unable to tell me when her last eye exam was. 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 She has a notable history of recent kidney failure, sounds like it was idiopathic but kidney function is not fully recovering. Her creatinine had improved from 9 -5 but her kidney function is still quite abnormal. She he has lost 12 lb in the last couple of months as well. She was hospitalized down in [place] so the records are not available to us. She has been constipated for the past 8 days, had a very small bowel movement 6 days ago, not significant. She took 2 Dulcolax stool softeners with no improvement in symptoms which is not unexpected. She stated that her lower abdomen aches and she had a single episode of vomiting on . She was too weak to get out of bed and her son had to help her. Reports that she has had prior colonoscopies before that were normal. No prior abdominal surgeries of any kind, no history of bowel obstructions. She does not take any anticoagulants. There has been no abdominal trauma. No dysuria, nephrology notes reflect an MRI of the kidneys performed within the last couple of months that was nonrevealing. The etiology of her kidney failure is unknown. Patient does report achy pain and she points the pelvis but the torso to the left lower quadrant for me. She denies a prior history of diverticulitis. She is not running fevers and also denies body aches and chills but does endorse weakness. Denies prior similar episodes but states that she is prone to constipation. Past medical history is most notable for hypertension in the recent kidney failure. She also has hyperlipidemia an overactive bladder. MOCA score in the hospital was 17/30 (which was of concern) as patient lives in [facility] in the winter, manages her own medications and still drives. Patient and her son state her cognition is much better today ( 11/16/24) than 3 days ago. Patient is highly motivate to improve her physical and cognitive status . Pain Assessment Pain Pain No Cognitive Assessments Performed Oriented Patient oriented Person,Place,Time,Situation Cognitive Assessments Performed [place] Making A and B Results Part A: 50 seconds-no deficit noted (passing score) Part B: did not pass, was unable to finish, really struggled after number 5, letter G Esequiel Cognitive Assessment (MOCA) Results MOCA 21/30 when tested 11/16/24 (this is 4 points better than 2 days ago when patient scored 17/30 in the hospital). Balance Assessment Comments Balance Comments unsteady, ambulating w/o a device, furniture surfs- reaching out for objects to steady herself. Shuffle, short steps. Assessment Assessment Assessment 79 year old female presented to the ED with son on 11/13/24 . She has a notable history of recent kidney failure, sounds like it was idiopathic but kidney function is not fully recovering. Her creatinine had improved from 9 -5 but her kidney function is still quite abnormal. She he has lost 12 lb in the last couple of months as well. She was hospitalized down in [place] so the records are not available to us. She has been constipated for the past 8 days, had a very small bowel movement 6 days ago, not significant. She took 2 Dulcolax stool softeners with no improvement in symptoms which is not unexpected. She stated that her lower abdomen aches and she had a single episode of vomiting on . She was too weak to get out of bed and her son had to help her. Reports that she has had prior colonoscopies before that were normal. No prior abdominal surgeries of any kind, no history of bowel obstructions. She does not take any anticoagulants. There has been no abdominal trauma. No dysuria, nephrology notes reflect an MRI of the kidneys performed within the last couple of months that was nonrevealing. The etiology of her kidney failure is unknown. Patient does report achy pain and she points the pelvis but the torso to the left lower quadrant for me. She denies a prior history of diverticulitis. She is not running fevers and also denies body aches and chills but does endorse weakness. Denies prior similar episodes but states that she is prone to constipation. Past medical history is most notable for hypertension in the recent kidney failure. She also has hyperlipidemia an overactive bladder. MOCA score in the hospital was 17/30 (which was of concern) as patient lives in [facility] in the winter, manages her own medications and still drives. Patient and her son state her cognition is much better today ( 11/16/24) than 3 days ago. Patient is highly motivate to improve her physical and cognitive status . Occupational Therapy Treatment Plan - OP Potential Rehabilitation Potential Good Set Goals Goals Set with Patient Yes Goals Goals 1. Patient will demonstrate a lower risk for falls as evident by a lower score on the Falls Self Efficacy Scale 2. The patient will actively engage in Cognitive & Visual assessments to determine level of functional problem solving and safety awareness relative to discharge recommendations. 3. The patient will complete assessments relative to driving skills in order to give safe driving recommendations to patient/ family and PCP. 4. Patient will demonstrate knowledge of current medications, as well as dosage , frequency, actions, side effects and interactions. 5. Patient will be Indep with an individualized, comprehensive HEP with participation >15 mins per day 4-5 days per week. Treatment Plan Treatment Plan Evaluation,Therapeutic Exercise,Therapeutic Activities,Self-Care/Home Management,Education, Functional/Cognitive Skills, Neuromuscular Reeducation Expected Frequency 1-2x Week Expected Duration 8-10 Weeks Certification Certification Statement I Certify That: Therapy Services Provided, Therapy Plan Established, Therapy Plan Reviewed Certification Information Clinic ID # [id number] Initial Certification Date 11/16/24 Recertification Due Date 02/14/25 Provider Signature Required Yes Provider Signature Shows Agreement With POC & Medical Necessity Physician NPI Number Write NPI# Here Physician Comment/Change Comment or Changes Physician Signature & Date Requested Please Sign/Date Here
--- NOTE | 2024-12-01 09:25 | PT.OPE ---
[facility] Outpatient Eval [facility] Outpatient Eval Start: 11/17/24 15:47 Freq: Status: Active Protocol: Document 11/17/24 15:47 BMS (Rec: 11/17/24 16:12 BMS [id number]) E-signed By Joan Aponte PT Physical Therapy Outpatient Evaluation Insurance Information Recert Due Date 02/14/25 Insurance Name Medicare B Insurance Information/Comments also supplemental Provider Fax Number internal Medical Diagnosis metabolic encephalopathy, kidney failure, weakness Treating Diagnosis abnormal gait R26.89 weakness, debility s/p hospitalization M62.81 impaired balance Referring MD Fran STAUFFER ; (hospitalist Dr Castillo) Subjective Subjective hx given by patient, son Luther who is with her, and EMR notes . was in [place], ended up hospitalized for kidney failure x 11 days in Oct, no previous hx. Had just had physical 5 weeks before with no problems. my creatinine now is 4.1 was up to 9. Kayla Villela and Luther brought me back up here until we can get this figured out. Was in hospital again with stomach virus or something over weekend. Am on diuretic and was up every few hours last night so tired out today. See doctor tomorrow for followup. Drinking plenty of water and eating ok. I am spending 1 week living with 1 son and 1 week with Luther who live within miles of one another and alternating back and forth. there are 2 steps for entry including threshold, do have handrail if need to go to other floor but everything I need is on main floor both places. I won't use the walker, I don't need it. Sons want me to get a fall alert but I dont' want one. I am wearing compression stockings now (she is not currenlty wearing them). Plan to go back to [place] when I can for rest of winter. there I have 4 steps with a rail on left going up then is level double wide trailer. Live alone there, play cards, do a lot of walking. there are some chair ex groups I could do too. My foot is really hurting my L toe has a bone spur or something that gets shaved off I wear a plastic spacer and that helps but bothers when I walk sometimes. No falls, wait did slide off chair bc pedaler slid out but wasnt hurt Date of Next Physician Visit 11/18/24 Current Work Status Retired Precautions Treatment Precautions/Contraindications macular degeneration, kidney failure, urinary urgency, weakness, balance impairment Therapy Limitations/Systems Review Vision,Other Medical Problem Objective Strength MMT seated hip flex R = 4+/5, L = 4-/5 abduct hips B 4-/5 quad and HS R = 5/5, L = 4-/5 Balance & Gait short stride, shuffling gait, with narrow base in walking, wider base in standing. slow strides with inc thoracic kyphosis vs flex at hips, LOB with head turns able to turn slowly with short pause between step - no walker, states she will not use bc she does not need it must hold on to achieve wide tandem stance weakness noted with 2 x 25' gait, Posture head slightly forward, Other/Pertinent Objective sit to stand with insufficient forward trunk translation and loss of balance posterior. in 3/5 trials. 5x sit to stand = 26.84 w posterior LOB. son Luther does cue her for forward translation of torso to improve performance. refuses gait aid Functional Test Performed & Score 5x STS = 26.84 seconds with mod assist x 2 due to backward fall into chair 30 sec sit to stand = 5 Tinetti 14/28 Tinetti Balance Assessment Tool Summary 1. Sitting balance: Sitting balance is steady, safe (1 points) 2. Rises from chair: Rises from chair using arms to help (1 points) 3. Attempts to rise: Rises from chair with > 1 attempt (1 points) 4. Immediate standing balance (first 5 seconds): Unsteady immediate standing balance (0 points) 5. Standing balance: Steady standing balance (with support and wide stance) (1 points) 6. Nudged: Steady when nudged (2 points) 7. Eyes closed: Steady when nudged (1 points) 8. Turning 360?: Continuous steps when turning 360? (1 points) 8. Turning 360?: Unsteady when turning 360? (0 points) 9. Sitting down: Uses arms or not a smooth motion when sitting down (1 points) Balance score: 07/25=56.3 percent. Graphical Balance score: 10. Indication of gait ( immediately after told to go.) : Hesitancy or multiple attempts initiating gait (0 points) 11.a. Step length and height: Right foot does not pass left stance foot (0 points) 11.b. Step length and height: Left foot does not pass right stance foot (0 points) 11.c. Step length and height: Right foot does not clear floor with step (0 points) The tools listed on this website do not substitute for the informed opinion of a licensed physician or other health care provider. All scores should be re- checked. Please see our full Terms of Use. 11.d. Step length and height: Left foot does not clear floor with step (0 points) 12. Step Symmetry: Right and left step appear equal (1 points) 13. Step Continuity: Steps appear continuous (1 points) 14. Path: Mild/moderate path deviation or uses walking aid (1 points) 15. Trunk: Flexion of knees or back, or spreads arms while walking (1 points) 16. Walking stance: Heels almost touching while walking (1 points) Gait score: 03/20=41.7 percent. Graphical Gait score: Total Tinetti score: =50.0 percent. Graphical Total Tinetti score Assessment Assessment/Impression Patient is pleasant 79 yo female referred to physical therapy after recent hospitalizations for first acute ideopathic kidney failure ( 11 days in [place]) then this weekend for metabolic encephalopathy and abdominal issues. She presents today with her son Luther, with whom she is currenlty staying. Both sons are supportive and live within miles of one another and they brought her back to [place] to recover, she is alternating weeks staying with each son. Each has 2 step entry with rail, though she plans to return to winter in [place] in her double wide (level after access w 4 steps and rail on L ascend). In [place] all needs on 1 level, in summer she lives in tiny house at son 's house and drives her laundry in golf cart to where the laundry facility is. This has worked well for her. Current deficits include: activity tolerance, weakness, abnormal gait with very short shuffling strides, refuses gait aid as she states she does not need it. Slowed speed in gait, turns and transitions noted, bed mobility not assessed this date. Patient does report fatigue this date. Sit to stand 5x = 26.84 sec which is a high fall risk and did loss of balance posterior mulitple times in trial. Son appropriately cues her for forward center of gravity translation to which she attempts but not fully successful. She is appropriate for skilled physical therapy to improve gait, balance, strength, endurance and activity tolerance to improve safety and independence. Shanita hopes to move back to [place] as soon as she is able for the winter. patient is motivated and has good family support from sons. Patient intends to move back to [place] but will depend on safety factor. did discuss fall detection options. consider toe curls/pickups, stretches, PF MFR with tennis ball. Primary Functional Limitations balance, gait, weakness s/p hospitalization and recent viral illness Plan of Care Rehabilitation Potential Good Rehabilitation Potential Comments appropriate for skilled physical therapy to improve functional strength, mobility, gait and transfers including sit/ stand without posterior LOB, and improve safety Physical Therapy Goals ) Pt demo independence/ modified I with home program to maximize self care and slow deterioration of function. 2) Pt demo I safe transfers, transitions and bed mobility for maximum safe independence in own home through training, equipment and adaptation as appropriate in presence of recent hospitalizations and kidney failure process. 3) Pt participate in gait and balance training to maximize safest independence with home and community mobility using least restrictive aid. 4) Pt demo safe independence with ascend/descend 4 steps for entrance to home in [place] 5) Pt demo ability to perform 5x sit to stand and /or 30 sec sit/ stand for improved safety and endurance. Coordination/Communication With Referral Source Treatment Plan/Direct Interventions Gait Training,Manual Therapy, Neuromuscular Re-ed,Self-Care/ Home Management,Therapeutic Activities,Therapeutic Exercises Frequency/Duration 1-2x/ week x 6-12 weeks pending progress and ability to manage at home Patient Will Be Discharged From Therapy Completion of LTG(s),Skills Plateau,Independent w/HEP, Independently Progressing Evaluation Billing Untimed Code Treatment Minutes 40 Complexity Moderate Certification Information Initial Certification Date 11/17/24 Ending Certification Date 02/14/25 Provider Signature Required Yes Provider Signature Shows Agreement With POC & Medical Necessity Physician NPI Number Write NPI# Here Physician Comment/Change : Physician Signature & Date Requested Please Sign/Date Here
== END 2025-04-07 23:59 | disposition home or self-care (01) ==
PROVIDERS: PCP Family Medicine; Visit Provider Family Medicine
DX: G93.41 Metabolic encephalopathy (principal); R53.83 Other fatigue; N19 Unspecified kidney failure; R26.89 Other abnormalities of gait and mobility; Z51.89 Encounter for other specified aftercare
CPT/HCPCS: 97110; 97112; 97116; 97162; 97166; 97535; X5282

== ENCOUNTER 2024-12-08 11:45 | Outpatient (CLI) | payer MEDICARE, OTHER, SELFPAY | END 2024-12-08 11:46 | disposition home or self-care (01) | PROVIDERS: PCP Family Medicine; Visit Provider Family Medicine | DX: I10 Essential (primary) hypertension (principal); N19 Unspecified kidney failure; R82.90 Unspecified abnormal findings in urine; R79.89 Other specified abnormal findings of blood chemistry | CPT/HCPCS: 80076; 83735; 87086 ==

== ENCOUNTER 2025-07-18 10:49 | Outpatient (CLI) | payer MEDICARE, OTHER, SELFPAY | END 2025-07-18 10:50 | disposition home or self-care (01) | PROVIDERS: PCP Family Medicine; Visit Provider Family Medicine | DX: D64.9 Anemia, unspecified (principal); E53.8 Deficiency of other specified B group vitamins; I12.9 Hypertensive chronic kidney disease with stage 1 through stage 4 chronic kidney disease, or unspecified chronic kidney disease; N18.4 Chronic kidney disease, stage 4 (severe); E03.9 Hypothyroidism, unspecified; R53.83 Other fatigue | CPT/HCPCS: 80061; 80069; 80076; 82607; 84443 ==